=== PATIENT | female | born 1970 | race Hispanic/Latino ===

== ENCOUNTER 2023-02-17 21:22 | Emergency (ER) | payer SELFPAY ==
--- OUTSIDE RECORDS SUMMARY | 2023-02-17 21:28 | XMS REPORT | Continuity of Care Document ---
:1970 Author Organization [facility] t Address [address] [facility] [address] [facility] [address] [place] [address] Care Team Providers Name Role Phone Sacha Paige MD Primary Care Physician SACHA PAIGE Attending Clinician Unavailable 2, [facility] Attending Clinician Unavailable Sacha Paige MD Attending Clinician Doctor Unassigned, [place] Attending Clinician Unavailable JONATHAN TAVARES Attending Clinician Unavailable JONATHAN TAVARES Attending Clinician Unavailable GIACOMO LA Attending Clinician Unavailable Giacomo La MD Attending Clinician MIGUEL GARCIA Attending Clinician Unavailable Atul Hernandez MD Attending Clinician Miguel Garcia MD Attending Clinician CATHI KAISER Attending Clinician Unavailable Pob, [facility] Attending Clinician Unavailable Ilene Vences LMSW Attending Clinician MIGUEL GARCIA Admitting Clinician Unavailable Miguel Garcia MD Admitting Clinician Payers Payer Name Policy Type Policy Number Effective Date Expiration Date S ource MEDICAID ALI[place] PENDING 2022 2022 PENDING 00:00:00 00:00:00 [facility] [id number] 2019 [place] 00:00:00 Problems Condition Condition Condition Status Onset Resolution Last Treating Co mments Source Name Details Category Date Date Treatment Clinician Date Pes planus Pes planus Disease Active U nivers of both of both 5-18 ity of feet feet 00:00: Medical Branch Fungal Fungal Disease Active Univers infection infection 5-18 ity of of nail of nail 00:00: Medical Branch Acute Acute Disease Active Univers appendicit appendicit 9-09 it y of is is 00:00: Medical Branch Slow Slow Disease Active Univers transit transit 2-10 ity of constipati constipati 00:[place]: [place] Abdominal Abdominal Disease Active Uni vers pain, pain, 2-10 ity of generalize generalize 00:00: [place] d d 00 Medical [facility] Anxiety Anxiety Disease Active Univers and and 3-09 ity of depression depression 00:00: [place] 00 [place] 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 1-04 ity of simplex simplex 00:00: [place] virus 1) virus 1) 00 Medica l infection infection Bran ch 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 1-04 ity of simplex simplex 00:00: [place] infection infection 00 Medi damian of lips of lips Branch Need for Need for Disease Active 2019-09 Unive rs influenza influenza 1-04 ity of vaccinatio vaccinatio 00:00: [place] n 00 Medical [facility] Diabetic Diabetic Disease Active 2019-09 Unive rs eye exam eye exam 1-04 ity of 00:00: [place] [facility] Dyslipidem Dyslipidem Disease Active U nivers ia ia 5-29 ity of 00:00: Medical Branch Essential Essential Disease Active 2018-09 Uni vers hypertensi hypertensi 2-13 it y of on on 00:00: [place] [facility] Type 2 Type 2 Disease Active Univers diabetes diabetes 9-09 ity of mellitus mellitus 00:00: [place] without without 00 Medical complicati complicati Br anch on, on, without without long-term long-term current current use of use of insulin insulin Allergies, Adverse Reactions, Alerts Allergy Allergy Status Severity Reaction(s) Onset Inactive Treating Comm ents Source Name Type Date Date Clinician Clindamy Propensi Active Rash 2019-0 Univer s jessie ty to 6-18 ity of adverse 00:00: [place] reaction 00 Medical s Branch CLINDAMY DRUG Active Hives 2019-0 Univers JESSIE INGREDI 6-18 ity of 00:00: [place] 00 Medical Branch Clindamy Propensi Active Rash 2019-0 Univer s jessie ty to 5-20 ity of adverse 00:00: [place] reaction 00 Medical s Branch CLINDAMY DRUG Active Rash 2019-0 Univers JESSIE INGREDI 5-20 ity of 00:00: [place] 00 Medical Branch Social History Social Habit Start Date Stop Date Quantity Comments Source Alcohol intake 2023-02-08 2023-02-08 Current University of 00:00:00 00:00:00 non-drinker of [facility] alcohol (finding) Branch Exposure to 2023-01-28 2023-02-07 Not sure University SARS-CoV-2 00:00:00 13:41:00 [place] [facility] (event) Branch Tobacco use and 2022-06-01 2022-06-01 Smokeless tobacco Un iversity of exposure 00:00:00 00:00:00 non-user [place] [facility] History SDKY 2020-02-19 2020-02-19 5 University o f Financial 00:00:00 00:00:00 [place] [facility] History [facility] Food 2020-02-19 2020-02-19 1 Univers ity of Worry 00:00:00 00:00:00 [place] [facility] History [facility] Food 2020-02-19 2020-02-19 1 Univers ity of Scarcity 00:00:00 00:00:00 [place] [facility] History SDKY 2020-02-19 2020-02-19 2 University o f Transport Med 00:00:00 00:00:00 [place] Medic al Branch History SDKY 2020-02-19 2020-02-19 2 University o f Transport Non-Med 00:00:00 00:00:00 [place] M edical [facility] Education 2020-02-19 2020-02-19 12 University of 00:00:00 00:00:00 [facility] Sex [birth year] At [birth year] Universit y of 00:00:00 00:00:00 [facility] Smoking Status Start Date Stop Date Source Never smoked tobacco [facility] Medications Ordered Filled Start Stop Current Ordering Indication Dosage Frequency Signature Comments Components Source Medication Medication Date Date Medication? Clinician (SIG) Name Name lisinopriL- 2021-09 Yes [id number] 1{tbl} Take 1 Univers hydrochloro 1-22 tablet by ity of thiazide 00:00: mouth [place] 20-25 mg 00 daily. Medical per tablet Branch pioglitazon 2021-09 Yes [id number] 30mg Take 1 Univers e 30 mg 1-22 tablet by ity of tablet 00:00: mouth [place] 00 daily. Medical Branch rosuvastati 2021-09 Yes [id number] 20mg Take 1 Univers n 20 mg 1-22 tablet by ity of tablet 00:00: mouth at [place] 00 bedtime. Medical Branch metFORMIN 2021-09 Yes [id number] 1000mg Take 1 Univers 1,000 mg 1-22 tablet by ity of tablet 00:00: mouth 2 [place] (two) Medical times Branch daily with meals. valACYclovi 2021-09 Yes [id number] 1g Take 1 U nivers r 1 gram 1-22 tablet by ity of tablet 00:00: mouth 2 [place] (two) Medical times Branch daily. Take during acute flare up only lisinopriL- 2021-09 Yes [id number] 1{tbl} Take 1 Univers hydrochloro 1-22 tablet by ity of thiazide 00:00: mouth [place] 20-25 mg 00 daily. Medical per tablet Branch pioglitazon 2021-09 Yes [id number] 30mg Take 1 Univers e 30 mg 1-22 tablet by ity of tablet 00:00: mouth [place] 00 daily. Medical Branch rosuvastati 2021-09 Yes [id number] 20mg Take 1 Univers n 20 mg 1-22 tablet by ity of tablet 00:00: mouth at [place] 00 bedtime. Medical Branch metFORMIN 2021-09 Yes [id number] 1000mg Take 1 Univers 1,000 mg 1-22 tablet by ity of tablet 00:00: mouth 2 (two) Medical times Branch daily with meals. valACYclovi 2021-09 Yes [id number] 1g Take 1 U nivers r 1 gram 1-22 tablet by ity of tablet 00:00: mouth 2 00 (two) Medical times Branch daily. Take during acute flare up only lisinopriL- 2021-09 Yes [id number] 1{tbl} Take 1 Univers hydrochloro 1-22 tablet by ity of thiazide 00:00: mouth [place] 20-25 mg 00 daily. Medical per tablet Branch pioglitazon 2021-09 Yes [id number] 30mg Take 1 Univers e 30 mg 1-22 tablet by ity of tablet 00:00: mouth [place] 00 daily. Medical Branch rosuvastati 2021-09 Yes [id number] 20mg Take 1 Univers n 20 mg 1-22 tablet by ity of tablet 00:00: mouth at [place] 00 bedtime. Medical Branch metFORMIN 2021-09 Yes [id number] 1000mg Take 1 Univers 1,000 mg 1-22 tablet by ity of tablet 00:00: mouth (two) Medical times Branch daily with meals. valACYclovi 2021-09 Yes [id number] 1g Take 1 U nivers r 1 gram 1-22 tablet by ity of tablet 00:00: mouth (two) Medical times Branch daily. Take during acute flare up only lisinopriL- 2021-09 Yes [id number] 1{tbl} Take 1 Univers hydrochloro 1-22 tablet by ity of thiazide 00:00: mouth [place] 20-25 mg 00 daily. Medical per tablet Branch pioglitazon 2021-09 Yes [id number] 30mg Take 1 Univers e 30 mg 1-22 tablet by ity of tablet 00:00: mouth [place] 00 daily. Medical Branch rosuvastati 2021-09 Yes [id number] 20mg Take 1 Univers n 20 mg 1-22 tablet by ity of tablet 00:00: mouth at [place] 00 bedtime. Medical Branch metFORMIN 2021-09 Yes [id number] 1000mg Take 1 Univers 1,000 mg 1-22 tablet by ity of tablet 00:00: mouth (two) Medical times Branch daily with meals. valACYclovi 2021-09 Yes [id number] 1g Take 1 U nivers r 1 gram 1-22 tablet by ity of tablet 00:00: mouth 2 (two) Medical times Branch daily. Take during acute flare up only lisinopriL- 2021-09 Yes [id number] 1{tbl} Take 1 Univers hydrochloro 1-22 tablet by ity of thiazide 00:00: mouth [place] 20-25 mg 00 daily. Medical per tablet Branch pioglitazon 2021-09 Yes [id number] 30mg Take 1 Univers e 30 mg 1-22 tablet by ity of tablet 00:00: mouth [place] 00 daily. Medical Branch rosuvastati 2021-09 Yes [id number] 20mg Take 1 Univers n 20 mg 1-22 tablet by ity of tablet 00:00: mouth at [place] 00 bedtime. Medical Branch metFORMIN 2021-09 Yes [id number] 1000mg Take 1 Univers 1,000 mg 1-22 tablet by ity of tablet 00:00: mouth 2 00 (two) Medical times Branch daily with meals. valACYclovi 2021-09 Yes [id number] 1g Take 1 U nivers r 1 gram 1-22 tablet by ity of tablet 00:00: mouth 2 [place] 00 (two) Medical times Branch daily. Take during acute flare up only lisinopriL- 2021-09 Yes [id number] 1{tbl} Take 1 Univers hydrochloro 1-22 tablet by ity of thiazide 00:00: mouth [place] 20-25 mg 00 daily. Medical per tablet Branch pioglitazon 2021-09 Yes [id number] 30mg Take 1 Univers e 30 mg 1-22 tablet by ity of tablet 00:00: mouth [place] 00 daily. Medical Branch rosuvastati 2021-09 Yes [id number] 20mg Take 1 Univers n 20 mg 1-22 tablet by ity of tablet 00:00: mouth at [place] 00 bedtime. Medical Branch metFORMIN 2021-09 Yes [id number] 1000mg Take 1 Univers 1,000 mg 1-22 tablet by ity of tablet 00:00: mouth 2 [place] 00 (two) Medical times Branch daily with meals. valACYclovi 2021-09 Yes [id number] 1g Take 1 U nivers r 1 gram 1-22 tablet by ity of tablet 00:00: mouth 2 [place] 00 (two) Medical times Branch daily. Take during acute flare up only lisinopriL- 2021-09 Yes [id number] 1{tbl} Take 1 Univers hydrochloro 1-22 tablet by ity of thiazide 00:00: mouth [place] 20-25 mg 00 daily. Medical per tablet Branch pioglitazon 2021-09 Yes [id number] 30mg Take 1 Univers e 30 mg 1-22 tablet by ity of tablet 00:00: mouth [place] 00 daily. Medical Branch rosuvastati 2021-09 Yes [id number] 20mg Take 1 Univers n 20 mg 1-22 tablet by ity of tablet 00:00: mouth at [place] 00 bedtime. Medical Branch metFORMIN 2021-09 Yes [id number] 1000mg Take 1 Univers 1,000 mg 1-22 tablet by ity of tablet 00:00: mouth 2 [place] (two) Medical times Branch daily with meals. valACYclovi 2021-09 Yes [id number] 1g Take 1 U nivers r 1 gram 1-22 tablet by ity of tablet 00:00: mouth 2 (two) Medical times Branch daily. Take during acute flare up only lisinopriL- 2021-09 Yes [id number] 1{tbl} Take 1 Univers hydrochloro 1-22 tablet by ity of thiazide 00:00: mouth [place] 20-25 mg 00 daily. Medical per tablet Branch pioglitazon 2021-09 Yes [id number] 30mg Take 1 Univers e 30 mg 1-22 tablet by ity of tablet 00:00: mouth [place] 00 daily. Medical Branch rosuvastati 2021-09 Yes [id number] 20mg Take 1 Univers n 20 mg 1-22 tablet by ity of tablet 00:00: mouth at [place] 00 bedtime. Medical Branch metFORMIN 2021-09 Yes [id number] 1000mg Take 1 Univers 1,000 mg 1-22 tablet by ity of tablet 00:00: mouth (two) Medical times Branch daily with meals. valACYclovi 2021-09 Yes [id number] 1g Take 1 U nivers r 1 gram 1-22 tablet by ity of tablet 00:00: mouth 2 [place] (two) Medical times Branch daily. Take during acute flare up only morpHINE (2 Yes 2mg 2 mg, Unive rs mg/mL) 9-10 Intravenou ity of injection 2 21:52: s, PRN, 1 [place] mg 30 dose, Medical Starting Branch on 06/02/22 at 1652, Until Discontinu ed, Routine, Pain (scale 7-10), DSU Recovery ondansetron Yes 4mg 4 mg, Slow Univers (ZOFRAN 06-02 IV Push, ity of (PF)) 21:52: PRN, 1 [place] injection 4 30 dose, Medical mg Starting Branch on 06/02/22 at 1652, Until Discontinu ed, Routine, Nausea and Vomiting (N/V), DSU Recovery morpHINE (2 2021- No 2mg 2 mg, Univ ers mg/mL) 06-02 Intravenou ity of injection 2 21:52: 00:36 s, PRN, 1 [place] mg 30 :15 dose, Medical Starting Branch on 06/02/22 at 1652, Until 06/02/22 at 1936, Routine, Pain (scale 7-10), DSU Recovery ondansetron 2021- No 4mg 4 mg, Slow Univers (ZOFRAN 06-02 IV Push, ity of (PF)) 21:52: 00:36 PRN, 1 [place] injection 4 30 :15 dose, Medical mg Starting Branch on 06/02/22 at 1652, Until 06/02/22 at 1936, Routine, Nausea and Vomiting (N/V), DSU Recovery enoxaparin Yes 30mg 30 mg, Unive rs (LOVENOX) 06-02 Subcutaneo ity of injection 14:00: [place], DAILY, [place] 30 mg 00 First dose Medical on Sat Branch 06/02/22 at 0900, Until Discontinu ed, Routine enoxaparin 2021- No 30mg 30 mg, Univ ers (LOVENOX) 06-02 Subcutaneo ity of injection 14:00: 00:36 us, DAILY, [place] 30 mg 00 :15 First dose Medical on Sat Branch 06/02/22 at 0900, Until Discontinu ed, Routine piperacilli 2021- No 3.375g 3.375 g, Univers n-tazobacta 06-02 IV ity of m (ZOSYN) 06:30: 06:29 Piggyback, [place] 3.375 g in 00 :00 Q8H ABX, 3 Med ical NaCl 0.9% doses, Branch (NS) 50 mL First dose MINI-BAG on 06/02/22 at 0130, Last dose on 06/02/22 at 1730, Administer over 4 Hours, 50 mL
Reas on for Anti-Infec tive: Documented Infection< br>Documen jessica Infection Site: Abdominal< br>Duratio n of Therapy: 7 days piperacilli 0 202- No 3.375g 3.375 g, Univers n-tazobacta 06-02 IV ity of m (ZOSYN) 06:30: 00:36 Piggyback, [place] 3.375 g in 00 :15 Q8H ABX, 3 Med ical NaCl 0.9% doses, Branch (NS) 50 mL First dose MINI-BAG on 06/02/22 at 0130, Last dose on [facility] 06/02/22 at 1730, Administer over 4 Hours, 50 mL
Reas on for Anti-Infec tive: Documented Infection< br>Documen jessica Infection Site: Abdominal< br>Duratio n of Therapy: 7 days HYDROcodone Yes [id number] 1{tbl} Take 1 Un ginger -acetaminop 9-10 tablet by ity of hen 5-325 00:00: mouth [place] mg tablet 00 every 6 Medical (six) Branch hours as needed for Pain (scale 4-6) or Pain (scale 7-10). Indication s: acute pain HYDROcodone Yes [id number] 1{tbl} Take 1 Un ginger -acetaminop 9-10 tablet by ity of hen 5-325 00:00: mouth [place] mg tablet 00 every 6 Medical (six) Branch hours as needed for Pain (scale 4-6) or Pain (scale 7-10). Indication s: acute pain HYDROcodone Yes [id number] 1{tbl} Take 1 Un ginger -acetaminop 9-10 tablet by ity of hen 5-325 00:00: mouth [place] mg tablet 00 every 6 Medical (six) Branch hours as needed for Pain (scale 4-6) or Pain (scale 7-10). Indication s: acute pain HYDROcodone Yes [id number] 1{tbl} Take 1 Un ginger -acetaminop 9-10 tablet by ity of hen 5-325 00:00: mouth [place] mg tablet 00 every 6 Medical (six) Branch hours as needed for Pain (scale 4-6) or Pain (scale 7-10). Indication s: acute pain HYDROcodone 2021-0 Yes [id number] 1{tbl} Take 1 Un ginger -acetaminop 9-10 tablet by ity of hen 5-325 00:00: mouth [place] mg tablet 00 every 6 Medical (six) Branch hours as needed for Pain (scale 4-6) or Pain (scale 7-10). Indication s: acute pain HYDROcodone 2021-0 Yes [id number] 1{tbl} Take 1 Un ginger -acetaminop 9-10 tablet by ity of hen 5-325 00:00: mouth [place] mg tablet 00 every 6 Medical (six) Branch hours as needed for Pain (scale 4-6) or Pain (scale 7-10). Indication s: acute pain HYDROcodone 2021-0 Yes [id number] 1{tbl} Take 1 Un ginger -acetaminop 9-10 tablet by ity of hen 5-325 00:00: mouth [place] mg tablet 00 every 6 Medical (six) Branch hours as needed for Pain (scale 4-6) or Pain (scale 7-10). Indication s: acute pain HYDROcodone 2021-0 Yes [id number] 1{tbl} Take 1 Un ginger -acetaminop 9-10 tablet by ity of hen 5-325 00:00: mouth [place] mg tablet 00 every 6 Medical (six) Branch hours as needed for Pain (scale 4-6) or Pain (scale 7-10). Indication s: acute pain HYDROcodone 2021-0 Yes [id number] 1{tbl} Take 1 Un ginger -acetaminop 9-10 tablet by ity of hen 5-325 00:00: mouth [place] mg tablet 00 every 6 Medical (six) Branch hours as needed for Pain (scale 4-6) or Pain (scale 7-10). Indication s: acute pain HYDROcodone 2-0 Yes [id number] 1{tbl} Take 1 Un ginger -acetaminop 9-10 tablet by ity of hen 5-325 00:00: mouth [place] mg tablet 00 every 6 Medical (six) Branch hours as needed for Pain (scale 4-6) or Pain (scale 7-10). Indication s: acute pain HYDROcodone 2022-0 2023- No [id number] 1{tbl} Take 1 U nivers -acetaminop 9-10 05-18 tablet by it y of hen 5-325 00:00: 00:00 mouth [place] mg tablet 00 :00 every 6 Medical (six) Branch hours as needed for Pain (scale 4-6) or Pain (scale 7-10). Indication s: acute pain HYDROcodone 2022- No [id number] 1{tbl} Take 1 U nivers -acetaminop 9-10 05-18 tablet by it y of hen 5-325 00:00: 00:00 mouth [place] mg tablet 00 :00 every 6 Medical (six) Branch hours as needed for Pain (scale 4-6) or Pain (scale 7-10). Indication s: acute pain ketorolac 2021-2021- No [id number] 10mg Take 1 U nivers 10 mg 9-10 09-18 tablet by ity of tablet 00:00: 04:59 mouth [place] 00 :00 every 6 Medical (six) Branch hours as needed for Alternate with Riley for pain scale 1-3 for up to 7 days. ketorolac 2021-0 2- No [id number] 10mg Take 1 U nivers 10 mg 9-10 09-18 tablet by ity of tablet 00:00: 04:59 mouth [place] 00 :00 every 6 Medical (six) Branch hours as needed for Alternate with Riley for pain scale 1-3 for up to 7 days. ketorolac 2021-0 2- No [id number] 10mg Take 1 U nivers 10 mg 9-10 09-18 tablet by ity of tablet 00:00: 04:59 mouth [place] 00 :00 every 6 Medical (six) Branch hours as needed for Alternate with [place] for pain scale 1-3 for up to 7 days. NaCl 0.9% 2021-0 Yes 1000mL at 150 Univ ers (NS) IV 9-09 mL/hr, IV ity of infusion 23:00: Infusion, [place] 1,000 mL 00 CONTINUOUS Medic al , Starting Branch on Sat06/01/22 at 1800, Until Discontinu ed, Routine ibuprofen 2021-0 Yes 800mg 800 mg, Univ ers (IBU) 9-09 Oral, Q6H, ity of tablet 800 23:00: First dose [place] mg 00 on Fri Medical 06/01/22 at Branch 1800, Until Discontinu ed, Routine NaCl 0.9% No 1000mL at 150 Uni vers (NS) IV 06-01 mL/hr, IV ity of infusion 23:00: 00:36 Infusion, [place] 1,000 mL 00 :15 CONTINUOUS Medic al , Starting Branch on Sat06/01/22 at 1800, Until 06/02/22 at 1936, Routine ibuprofen 2021- No 800mg 800 mg, Uni vers (IBU) 06-01 Oral, Q6H, ity of tablet 800 23:00: 00:36 First dose [place] mg 00 :15 on Sat Medical 06/01/22 at Branch 1800, Until Discontinu ed, Routine ondansetron Yes 4mg 4 mg, Slow Univers (ZOFRAN 06-01 IV Push, ity of (PF)) 22:49: Q6HPRN, [place] injection 4 11 Nausea and Me dical mg Vomiting Branch (N/V), Starting on Sat06/01/22 at 1749
Do ses of ondansetro n 16 mg and above need to be administer ed via IV piggyback. For Dose >=24mg ECG monitoring is advisable.
ondansetron No 4mg 4 mg, Slow Univers (ZOFRAN 06-01 IV Push, ity of (PF)) 22:49: 00:36 Q6HPRN, [place] injection 4 11 :15 Nausea and Me dical mg Vomiting Branch (N/V), Starting on Sat06/01/22 at 1749
Do ses of ondansetro n 16 mg and above need to be administer ed via IV piggyback. For Dose >=24mg ECG monitoring is advisable.
HYDROcodone Yes 1{tbl} 1 tablet, Univers -acetaminop 06-01 Oral, ity of hen (NORCO) 21:57: Q6HPRN, [place] 10-325 mg 10 Starting Medica l tablet 1 on Sat Branch tablet 06/01/22 at 1657, Until Discontinu ed, Routine, Pain (scale 7-10) HYDROcodone 2021-2021- No 1{tbl} 1 tablet, Univers -acetaminop 06-01 Oral, ity of hen (NORCO) 21:57: 00:36 Q6HPRN, [place] 10-325 mg 10 :15 Starting Medica l tablet 1 on Fri Branch tablet 06/01/22 at 1657, Until 06/02/22 at 1936, Routine, Pain (scale 7-10) morpHINE (2 2021- No 2mg 2 mg, Slow Univers mg/mL) 06-01 IV Push, ity of injection 2 21:56: 14:55 Q6HPRN, [place] mg 53 :53 Starting Medical on Fri Branch 06/01/22 at 1656, Until 06/02/22 at 0955, Routine, Breakthrou gh pain morpHINE (2 2021- No 2mg 2 mg, Slow Univers mg/mL) 06-01 IV Push, ity of injection 2 21:56: 14:55 Q6HPRN, [place] mg 53 :53 Starting Medical on Fri Branch 06/01/22 at 1656, Until 06/02/22 at 0955, Routine, Breakthrou gh pain Sliding Yes Subcutaneo Univ ers Scale 06-01 us, AC+HS, ity of Insulin-Reg 21:30: First dose [place] ular + Fsbg 00 on Sat Medica l Testing 06/01/22 at Branch 1630, Until Discontinu ed, Routine Sliding 2021- No Subcutaneo Uni vers Scale 06-01 us, AC+HS, ity of Insulin-Reg 21:30: 00:36 First dose [place] ular + Fsbg 00 :15 on Fri Medica l Testing 06/01/22 at Branch 1630, Until Discontinu ed, Routine bupivacaine 2021- No PRN, Unive rs -epinephrin 06-01 Starting ity of e-pf 21:29: 21:55 on Fri [place] (SENSORCAIN 00 :21 06/01/22 at Med ical E 1629, Branch W/EPINEPHRI Intra-op NE) 0.25 %-1:200,000 30 mL, lidocaine 1% (PF) (XYLOCAINE) 30 mL sodium 2021- No PRN, Univers chloride 06-01 Starting ity of 0.9 % 20:47: 21:55 on Fri [place] irrigation 00 :21 06/01/22 at Medi damian solution 1547, Branch Until 06/01/22 at 1655, Intra-op glucagon Yes 1mg 1 mg, Univers (GLUCAGEN 06-01 Intramuscu ity of DIAGNOSTIC 19:40: lar, PRN, [place] KIT) 21 Starting Medical injection 1 on Fri Branch mg 06/01/22 at 1440, Until Discontinu ed, SVEN, Blood Glucose < or = 70 mg/dL and patient is unable to swallow or has mental changes. dextrose 50 Yes 25mL 25 mL, Univ ers % in water 06-01 Slow IV ity of (D50W) 19:40: Push, PRN, [place] injection 21 Starting Medica l 25 mL on Fri Branch 06/01/22 at 1440, Until Discontinu ed, SVEN, Blood Glucose < or = 70 mg/dL and patient is unable to swallow or has mental status changes. glucagon 0 2021- No 1mg 1 mg, Univers (GLUCAGEN 06-01 Intramuscu ity of DIAGNOSTIC 19:40: 00:36 lar, PRN, [place] KIT) 21 :15 Starting Medical injection 1 on Sat Branch 06/01/22 at 1440, Until 06/02/22 at 1936, SVEN, Blood Glucose < or = 70 mg/dL and patient is unable to swallow or has mental changes. dextrose 50 0 2021- No 25mL 25 mL, Uni vers % in water 06-01 Slow IV ity o f (D50W) 19:40: 00:36 [place], PRN, [place] injection 21 :15 Starting Medica l 25 mL on Fri Branch 06/01/22 at 1440, Until 06/02/22 at 1936, SVEN, Blood Glucose < or = 70 mg/dL and patient is unable to swallow or has mental status changes. NaCl 0.9% 2021- No 1000mL at 150 Uni vers (NS) IV 06-01 mL/hr, IV ity of infusion 15:45: 22:00 Infusion, [place] 1,000 mL 00 :21 CONTINUOUS Medic al , Starting Branch on 06/01/22 at 1045, Until 06/01/22 at 1700, Routine NaCl 0.9% 2021- No 1000mL at 150 Uni vers (NS) IV 06-01 mL/hr, IV ity of infusion 15:45: 22:00 Infusion, [place] 1,000 mL 00 :21 CONTINUOUS Medic al , Starting Branch on 06/01/22 at 1045, Until 06/01/22 at 1700, Routine HYDROcodone 2021- No 1{tbl} 1 tablet, Univers -acetaminop 06-01 Oral, ity of hen (NORCO 15:15: 15:14 Q6HPRN, [place] 5) 5-325 mg 56 :56 Starting Medi damian tablet 1 on Fri Branch tablet 06/01/22 at 1015, Until 06/03/22 at 1014, Routine, Pain (scale 4-6) HYDROcodone 2021- No 1{tbl} 1 tablet, Univers -acetaminop 06-01 Oral, ity of hen (NORCO 15:15: 00:36 Q6HPRN, [place] 5) 5-325 mg 56 :15 Starting Medi damian tablet 1 on Fri Branch tablet 06/01/22 at 1015, Until 06/02/22 at 1936, Routine, Pain (scale 4-6) acetaminoph Yes 650mg 650 mg, Un ginger en 06-01 Oral, ity of (TYLENOL) 15:15: Q6HPRN, [place] tablet 650 54 Starting Medic al mg on Fri Branch 06/01/22 at 1015, Until Discontinu ed, Routine, Pain (scale 1-3) acetaminoph 2021- No 650mg 650 mg, U nivers en 06-01 Oral, ity of (TYLENOL) 15:15: 00:36 Q6HPRN, [place] tablet 650 54 :15 Starting Medic al mg on Fri Branch 06/01/22 at 1015, Until 06/02/22 at 1936, Routine, Pain (scale 1-3) ondansetron 2021-0 202- No 4mg 4 mg, Slow Univers (ZOFRAN 06-01 IV Push, ity of (PF)) 14:58: 15:00 ONCE, 1 [place] injection 4 00 :00 dose, On Medi damian mg Sat06/01/22 Branch at 1000, SVEN ondansetron 2021-0 202- No 4mg 4 mg, Slow Univers (ZOFRAN 06-01 IV Push, ity of (PF)) 14:58: 15:00 ONCE, 1 [place] injection 4 00 :00 dose, On Medi damian mg Sat06/01/22 Branch at 1000, SVEN FENTanyl PF 2021-2021- No 50ug 50 mcg, Un ginger (SUBLIMAZE 06-01 Slow IV ity o f (PF)) 14:45: 14:40 Push, [place] injection 00 :00 ONCE, 1 Medical 50 mcg dose, On Branch Sat06/01/22 at 0945, STAT piperacilli 2021-0 2021- No 3.375g 3.375 g, Univers n-tazobacta 06-01 IV ity of m (ZOSYN) 14:45: 15:24 Piggyback, [place] 3.375 g in 00 :58 ONCE, 1 Medica l NaCl 0.9% dose, On Branch (NS) 50 mL Sat06/01/22 MINI-BAG at 0945, Administer over 30 Minutes, 50 mL
R la for Anti-Infec tive: Documented Infection< br>Documen jessica Infection Site: Skin / Soft Tissue
Duration of Therapy: 7 days FENTanyl PF 2021-0 2021- No 50ug 50 mcg, Un ginger (SUBLIMAZE 06-01 Slow IV ity o f (PF)) 14:45: 14:40 Push, [place] injection 00 :00 ONCE, 1 Medical 50 mcg dose, On Branch Sat06/01/22 at 0945, STAT piperacilli 2021-0 2021- No 3.375g 3.375 g, Univers n-tazobacta 06-01 IV ity of m (ZOSYN) 14:45: 15:24 [place] 3.375 g in 00 :58 ONCE, 1 Medica l NaCl 0.9% dose, On Branch (NS) 50 mL Sat06/01/22 MINI-BAG at 0945, Administer over 30 Minutes, 50 mL
R la for Anti-Infec tive: Documented Infection< br>Documen jessica Infection Site: Skin / Soft Tissue
Duration of Therapy: 7 days ketorolac 2021- No 30mg 30 mg, Unive rs (TORADOL) 06-01 Slow IV ity of injection 14:00: 12:51 Push, [place] 30 mg 00 :00 ONCE, 1 Medical dose, On Branch Sat06/01/22 at 0900, Routine ketorolac 2021- No 30mg 30 mg, Unive rs (TORADOL) 06-01 Slow IV ity of injection 14:00: 12:51 Push, [place] 30 mg 00 :00 ONCE, 1 Medical dose, On Branch Sat06/01/22 at 0900, Routine docusate Yes [id number] 100mg Take 1 Un ginger (COLACE) 2-10 capsule by ity o f 100 mg 00:00: mouth 2 [place] capsule 00 (two) Medical times Branch daily as needed for Constipati on. psyllium Yes [id number] .52g Take 1 Uni vers (METAMUCIL) 2-10 capsule by it y of 0.52 gram 00:00: mouth [place] capsule 00 daily. Medical Branch NIFEdipine Yes [id number] 30mg Take 1 U nivers XL 2-10 tablet by ity of (PROCARDIA 00:00: mouth [place] XL) 30 mg 00 daily. Medical 24 hr Branch tablet lisinopriL- Yes [id number] 1{tbl} Take 1 [facility] hydrochloro 2-10 tablet by ity of thiazide 00:00: mouth [place] 20-25 mg 00 daily. Medical per tablet Branch pioglitazon Yes [id number] 30mg Take 1 Univers e 30 mg 2-10 tablet by ity of tablet 00:00: mouth [place] 00 daily. Medical Branch metFORMIN Yes [id number] 1000mg Take 1 [facility] 1,000 mg 2-10 tablet by ity of tablet 00:00: mouth 2 [place] 00 (two) Medical times Branch daily with meals. rosuvastati Yes [id number] 20mg Take 1 [facility] n 20 mg 2-10 tablet by ity of tablet 00:00: mouth at [place] 00 bedtime. Medical Branch docusate 0 Yes [id number] 100mg Take 1 Un ginger (COLACE) 2-10 capsule by ity o f 100 mg 00:00: mouth 2 [place] capsule 00 (two) Medical times Branch daily as needed for Constipati on. psyllium Yes [id number] .52g Take 1 Uni vers (METAMUCIL) 2-10 capsule by it y of 0.52 gram 00:00: mouth [place] capsule 00 daily. Medical Branch NIFEdipine Yes [id number] 30mg Take 1 U nivers XL 2-10 tablet by ity of (PROCARDIA 00:00: mouth [place] XL) 30 mg 00 daily. Medical 24 hr Branch tablet lisinopriL- 0 Yes [id number] 1{tbl} Take 1 [facility] hydrochloro 2-10 tablet by ity of thiazide 00:00: mouth [place] 20-25 mg 00 daily. Medical per tablet Branch pioglitazon Yes [id number] 30mg Take 1 [facility] e 30 mg 2-10 tablet by ity of tablet 00:00: mouth [place] 00 daily. Medical Branch metFORMIN Yes [id number] 1000mg Take 1 [facility] 1,000 mg 2-10 tablet by ity of tablet 00:00: mouth 2 [place] 00 (two) Medical times Branch daily with meals. rosuvastati Yes [id number] 20mg Take 1 [facility] n 20 mg 2-10 tablet by ity of tablet 00:00: mouth at [place] 00 bedtime. Medical Branch docusate Yes [id number] 100mg Take 1 Un ginger (COLACE) 2-10 capsule by ity o f 100 mg 00:00: mouth 2 [place] capsule 00 (two) Medical times Branch daily as needed for Constipati on. psyllium 0 Yes [id number] .52g Take 1 Uni vers (METAMUCIL) 2-10 capsule by it y of 0.52 gram 00:00: mouth [place] capsule 00 daily. Medical Branch NIFEdipine 0 Yes [id number] 30mg Take 1 U nivers XL 2-10 tablet by ity of (PROCARDIA 00:00: mouth [place] XL) 30 mg 00 daily. Medical 24 hr Branch tablet lisinopriL- Yes [id number] 1{tbl} Take 1 [facility] hydrochloro 2-10 tablet by ity of thiazide 00:00: mouth [place] 20-25 mg 00 daily. Medical per tablet Branch pioglitazon Yes [id number] 30mg Take 1 [facility] e 30 mg 2-10 tablet by ity of tablet 00:00: mouth [place] 00 daily. Medical Branch metFORMIN Yes [id number] 1000mg Take 1 [facility] 1,000 mg 2-10 tablet by ity of tablet 00:00: mouth 2 [place] 00 (two) Medical times Branch daily with meals. rosuvastati Yes [id number] 20mg Take 1 [facility] n 20 mg 2-10 tablet by ity of tablet 00:00: mouth at [place] 00 bedtime. Medical Branch docusate Yes [id number] 100mg Take 1 Un ginger (COLACE) 2-10 capsule by ity o f 100 mg 00:00: mouth 2 [place] capsule 00 (two) Medical times Branch daily as needed for Constipati on. psyllium Yes [id number] .52g Take 1 Uni vers (METAMUCIL) 2-10 capsule by it y of 0.52 gram 00:00: mouth [place] capsule 00 daily. Medical Branch NIFEdipine Yes [id number] 30mg Take 1 U nivers XL 2-10 tablet by ity of (PROCARDIA 00:00: mouth [place] XL) 30 mg 00 daily. Medical 24 hr Branch tablet lisinopriL- Yes [id number] 1{tbl} Take 1 [facility] hydrochloro 2-10 tablet by ity of thiazide 00:00: mouth [place] 20-25 mg 00 daily. Medical per tablet Branch pioglitazon Yes [id number] 30mg Take 1 [facility] e 30 mg 2-10 tablet by ity of tablet 00:00: mouth [place] 00 daily. Medical Branch metFORMIN 0 Yes [id number] 1000mg Take 1 [facility] 1,000 mg 2-10 tablet by ity of tablet 00:00: mouth 2 [place] 00 (two) Medical times Branch daily with meals. rosuvastati Yes [id number] 20mg Take 1 [facility] n 20 mg 2-10 tablet by ity of tablet 00:00: mouth at [place] 00 bedtime. Medical Branch psyllium Yes [id number] .52g Take 1 Uni vers (METAMUCIL) 2-10 capsule by it y of 0.52 gram 00:00: mouth [place] capsule 00 daily. Medical Branch NIFEdipine Yes [id number] 30mg Take 1 U nivers XL 2-10 tablet by ity of (PROCARDIA 00:00: mouth [place] XL) 30 mg 00 daily. Medical 24 hr Branch tablet lisinopriL- Yes [id number] 1{tbl} Take 1 [facility] hydrochloro 2-10 tablet by ity of thiazide 00:00: mouth [place] 20-25 mg 00 daily. Medical per tablet Branch pioglitazon Yes [id number] 30mg Take 1 [facility] e 30 mg 2-10 tablet by ity of tablet 00:00: mouth [place] 00 daily. Medical Branch metFORMIN Yes [id number] 1000mg Take 1 [facility] 1,000 mg 2-10 tablet by ity of tablet 00:00: mouth 2 [place] 00 (two) Medical times Branch daily with meals. rosuvastati Yes [id number] 20mg Take 1 [facility] n 20 mg 2-10 tablet by ity of tablet 00:00: mouth at [place] 00 bedtime. Medical Branch psyllium Yes [id number] .52g Take 1 Uni vers (METAMUCIL) 2-10 capsule by it y of 0.52 gram 00:00: mouth [place] capsule 00 daily. Medical Branch NIFEdipine Yes [id number] 30mg Take 1 U nivers XL 2-10 tablet by ity of (PROCARDIA 00:00: mouth [place] XL) 30 mg 00 daily. Medical 24 hr Branch tablet lisinopriL- Yes [id number] 1{tbl} Take 1 [facility] hydrochloro 2-10 tablet by ity of thiazide 00:00: mouth [place] 20-25 mg 00 daily. Medical per tablet Branch pioglitazon Yes [id number] 30mg Take 1 [facility] e 30 mg 2-10 tablet by ity of tablet 00:00: mouth [place] 00 daily. Medical Branch metFORMIN Yes [id number] 1000mg Take 1 [facility] 1,000 mg 2-10 tablet by ity of tablet 00:00: mouth 2 [place] 00 (two) Medical times Branch daily with meals. rosuvastati Yes [id number] 20mg Take 1 [facility] n 20 mg 2-10 tablet by ity of tablet 00:00: mouth at [place] 00 bedtime. Medical Branch psyllium Yes [id number] .52g Take 1 Uni vers (METAMUCIL) 2-10 capsule by it y of 0.52 gram 00:00: mouth [place] capsule 00 daily. Medical Branch NIFEdipine Yes [id number] 30mg Take 1 U nivers XL 2-10 tablet by ity of (PROCARDIA 00:00: mouth [place] XL) 30 mg 00 daily. Medical 24 hr Branch tablet lisinopriL- Yes [id number] 1{tbl} Take 1 [facility] hydrochloro 2-10 tablet by ity of thiazide 00:00: mouth [place] 20-25 mg 00 daily. Medical per tablet Branch pioglitazon Yes [id number] 30mg Take 1 [facility] e 30 mg 2-10 tablet by ity of tablet 00:00: mouth [place] 00 daily. Medical Branch metFORMIN Yes [id number] 1000mg Take 1 [facility] 1,000 mg 2-10 tablet by ity of tablet 00:00: mouth 2 [place] 00 (two) Medical times Branch daily with meals. rosuvastati Yes [id number] 20mg Take 1 [facility] n 20 mg 2-10 tablet by ity of tablet 00:00: mouth at [place] 00 bedtime. Medical Branch psyllium Yes [id number] .52g Take 1 Uni vers (METAMUCIL) 2-10 capsule by it y of 0.52 gram 00:00: mouth [place] capsule 00 daily. Medical Branch NIFEdipine Yes [id number] 30mg Take 1 U nivers XL 2-10 tablet by ity of (PROCARDIA 00:00: mouth [place] XL) 30 mg 00 daily. Medical 24 hr Branch tablet lisinopriL- Yes [id number] 1{tbl} Take 1 [facility] hydrochloro 2-10 tablet by ity of thiazide 00:00: mouth [place] 20-25 mg 00 daily. Medical per tablet Branch pioglitazon Yes [id number] 30mg Take 1 [facility] e 30 mg 2-10 tablet by ity of tablet 00:00: mouth [place] 00 daily. Medical Branch metFORMIN Yes [id number] 1000mg Take 1 [facility] 1,000 mg 2-10 tablet by ity of tablet 00:00: mouth 2 [place] 00 (two) Medical times Branch daily with meals. rosuvastati Yes [id number] 20mg Take 1 [facility] n 20 mg 2-10 tablet by ity of tablet 00:00: mouth at [place] 00 bedtime. Medical Branch psyllium Yes [id number] .52g Take 1 Uni vers (METAMUCIL) 2-10 capsule by it y of 0.52 gram 00:00: mouth [place] capsule 00 daily. Medical Branch NIFEdipine Yes [id number] 30mg Take 1 U nivers XL 2-10 tablet by ity of (PROCARDIA 00:00: mouth [place] XL) 30 mg 00 daily. Medical 24 hr Branch tablet lisinopriL- Yes [id number] 1{tbl} Take 1 [facility] hydrochloro 2-10 tablet by ity of thiazide 00:00: mouth [place] 20-25 mg 00 daily. Medical per tablet Branch pioglitazon Yes [id number] 30mg Take 1 [facility] e 30 mg 2-10 tablet by ity of tablet 00:00: mouth [place] 00 daily. Medical Branch metFORMIN Yes [id number] 1000mg Take 1 [facility] 1,000 mg 2-10 tablet by ity of tablet 00:00: mouth 2 (two) Medical times Branch daily with meals. rosuvastati Yes [id number] 20mg Take 1 [facility] n 20 mg 2-10 tablet by ity of tablet 00:00: mouth at [place] 00 bedtime. Medical Branch psyllium 2021- No [id number] .52g Take 1 Un ginger (METAMUCIL) 2-10 11-22 capsule by i ty of 0.52 gram 00:00: 00:00 mouth [place] capsule 00 :00 daily. Medical Branch NIFEdipine 2021- No [id number] 30mg Take 1 [facility] XL 2-10 11-22 tablet by ity of (PROCARDIA 00:00: 00:00 mouth [place] XL) 30 mg 00 :00 daily. Medical 24 hr Branch tablet lisinopriL- 2021- No [id number] 1{tbl} Take 1 [facility] hydrochloro 2-10 11-22 tablet by it y of thiazide 00:00: 00:00 mouth [place] 20-25 mg 00 :00 daily. Medical per tablet Branch pioglitazon 2021- No [id number] 30mg Take 1 [facility] e 30 mg 2-10 -22 tablet by ity of tablet 00:00: 00:00 mouth [place] 00 :00 daily. Medical Branch metFORMIN No [id number] 1000mg Take 1 [facility] 1,000 mg 2-10 -22 tablet by ity o f tablet 00:00: 00:00 mouth 2 [place] 00 :00 (two) Medical times Branch daily with meals. rosuvastati 2021- No [id number] 20mg Take 1 [facility] n 20 mg 2-10 -22 tablet by ity of tablet 00:00: 00:00 mouth at [place] 00 :00 bedtime. Medical Branch psyllium 2021- No [id number] .52g Take 1 Un ginger (METAMUCIL) 2-10 -22 capsule by i ty of 0.52 gram 00:00: 00:00 mouth [place] capsule 00 :00 daily. Medical Branch NIFEdipine 2021- No [id number] 30mg Take 1 [facility] XL 2-10 11-22 tablet by ity of (PROCARDIA 00:00: 00:00 mouth [place] XL) 30 mg 00 :00 daily. Medical 24 hr Branch tablet lisinopriL- 2021- No [id number] 1{tbl} Take 1 [facility] hydrochloro 2-10 11-22 tablet by it y of thiazide 00:00: 00:00 mouth [place] 20-25 mg 00 :00 daily. Medical per tablet Branch pioglitazon 2021- No [id number] 30mg Take 1 [facility] e 30 mg 2-10 11-22 tablet by ity of tablet 00:00: 00:00 mouth [place] 00 :00 daily. Medical Branch metFORMIN 2021- No [id number] 1000mg Take 1 [facility] 1,000 mg 2-10 11-22 tablet by ity o f tablet 00:00: 00:00 mouth 2 [place] 00 :00 (two) Medical times Branch daily with meals. rosuvastati 2021- No [id number] 20mg Take 1 Univers n 20 mg 2-10 -22 tablet by ity of tablet 00:00: 00:00 mouth at [place] 00 :00 bedtime. Medical Branch docusate 2021- No [id number] 100mg Take 1 U nivers (COLACE) 2-10 09-10 capsule by ity of 100 mg 00:00: 00:00 mouth 2 [place] capsule 00 :00 (two) Medical times Branch daily as needed for Constipati on. docusate 2021- No [id number] 100mg Take 1 U nivers (COLACE) 2-10 09-10 capsule by ity of 100 mg 00:00: 00:00 mouth 2 [place] capsule 00 :00 (two) Medical times Branch daily as needed for Constipati on. FLUoxetine Yes [id number] 10mg Take 1 Univers 10 mg 3-09 tablet by ity of tablet 00:00: mouth [place] 00 daily. Medical Branch FLUoxetine Yes [id number] 10mg Take 1 Univers 10 mg 3-09 tablet by ity of tablet 00:00: mouth [place] 00 daily. [facility] FLUoxetine Yes [id number] 10mg Take 1 Univers 10 mg 3-09 tablet by ity of tablet 00:00: mouth [place] 00 daily. Medical Branch FLUoxetine Yes [id number] 10mg Take 1 Univers 10 mg 3-09 tablet by ity of tablet 00:00: mouth [place] 00 daily. [facility] FLUoxetine Yes [id number] 10mg Take 1 Univers 10 mg 3-09 tablet by ity of tablet 00:00: mouth [place] 00 daily. [facility] FLUoxetine Yes [id number] 10mg Take 1 Univers 10 mg 3-09 tablet by ity of tablet 00:00: mouth [place] 00 daily. [facility] FLUoxetine Yes [id number] 10mg Take 1 Univers 10 mg 3-09 tablet by ity of tablet 00:00: mouth [place] 00 daily. [facility] FLUoxetine Yes [id number] 10mg Take 1 Univers 10 mg 3-09 tablet by ity of tablet 00:00: mouth [place] 00 daily. Medical Branch FLUoxetine Yes [id number] 10mg Take 1 [facility] 10 mg 3- tablet by ity of tablet 00:00: mouth [place] 00 daily. Medical Branch FLUoxetine 2021- No [id number] 10mg Take 1 Univers 10 mg 308-14 tablet by ity of tablet 00:00: 00:00 mouth [place] 00 :00 daily. Medical Branch FLUoxetine 2021- No [id number] 10mg Take 1 [facility] 10 mg 11-29 tablet by ity of tablet 00:00: 00:00 mouth [place] 00 :00 daily. Medical Branch acyclovir 2019-09 Yes [id number] 400mg Take 1 [facility] 400 mg 1-04 tablet by ity of tablet 00:00: mouth 3 00 (three) Medical times Branch daily. Docosanol 2019- Yes [id number] Apply to Univers (ABREVA) 10 -04 area(s) 2 ity of % Crea 00:00: (two) [place] 00 times Medical daily. Branch acyclovir 2019-09 Yes [id number] 400mg Take 1 [facility] 400 mg 1-04 tablet by ity of tablet 00:00: mouth 3 00 (three) Medical times Branch daily. Docosanol 2020- Yes [id number] Apply to Univers (ABREVA) 10 1-04 area(s) 2 ity of % Crea 00:00: (two) [place] 00 times Medical daily. Branch acyclovir 2019-09 Yes [id number] 400mg Take 1 [facility] 400 mg 1-04 tablet by ity of tablet 00:00: mouth 3 [place] 00 (three) Medical times Branch daily. Docosanol 2020- Yes [id number] Apply to Univers (ABREVA) 10 1-04 area(s) 2 ity of % Crea 00:00: (two) [place] 00 times Medical daily. Branch acyclovir 2019-09 Yes [id number] 400mg Take 1 [facility] 400 mg 1-04 tablet by ity of tablet 00:00: mouth 3 [place] 00 (three) Medical times Branch daily. Docosanol 2020- Yes [id number] Apply to Univers (ABREVA) 10 1-04 area(s) 2 ity of % Crea 00:00: (two) [place] 00 times Medical daily. Branch acyclovir 2019-09- No [id number] 400mg Take 1 [facility] 400 mg 09-26 tablet by ity of tablet 00:00: 00:00 mouth 3 [place] 00 :00 (three) Medical times Branch daily. Docosanol 2019-09- No [id number] Apply to [facility] 10 09-26 area(s) 2 it y of % Crea 00:00: 00:00 (two) [place] 00 :00 times Medical daily. Branch acyclovir 2019-09- No [id number] 400mg Take 1 Univers 400 mg 09-26 tablet by ity of tablet 00:00: 00:00 mouth 3 [place] 00 :00 (three) Medical times [place] daily. Docosanol 2019-09- No [id number] Apply to [facility] 10 09-26 area(s) 2 it y of % Crea 00:00: 00:00 (two) [place] 00 :00 times Medical daily. Branch Miscellaneo 2018-09 Yes [id number] I10 - [facility] [place] [employer] [facility] 11-01 Dispense ity o f Supply Kit 00:00: blood [place] 00 pressure Medical cuff (any Branch brand), take BP at home BID Miscellaneo 2018-09 Yes [id number] I10 - [facility] [place] [employer] [facility] 11-01 Dispense ity o f Supply Kit 00:00: blood [place] 00 pressure Medical cuff (any Branch brand), take BP at home BID Miscellaneo 2018-09 Yes [id number] I10 - [facility] [place] [employer] [facility] 11-01 Dispense ity o f Supply Kit 00:00: blood [place] 00 pressure Medical cuff (any Branch brand), take BP at home BID Miscellaneo 2018-09 Yes [id number] I10 - [facility] [place] [employer] [facility] 11-01 Dispense ity o f Supply Kit 00:00: blood [place] 00 pressure Medical cuff (any Branch brand), take BP at home BID Miscellaneo 2018-09 Yes [id number] I10 - [facility] [place] [employer] [facility] 11-01 Dispense ity o f Supply Kit 00:00: blood [place] 00 pressure Medical cuff (any Branch brand), take BP at home BID Miscellaneo 2018-09 Yes [id number] I10 - [facility] 11[facility] Dispense ity o f Supply Kit 00:00: blood [place] 00 pressure Medical cuff (any Branch brand), take BP at home BID Miscellaneo 2018-09 Yes [id number] I10 - U [facility] 11-01 Dispense ity o f Supply Kit 00:00: blood [place] 00 pressure Medical cuff (any Branch brand), take BP at home BID Miscellaneo 2018-09 Yes [id number] I10 - [facility] 11-01 Dispense ity o f Supply Kit 00:00: blood [place] 00 pressure Medical cuff (any Branch brand), take BP at home BID Miscellaneo 2018-09 Yes [id number] I10 - [facility] 11-01 Dispense ity o f Supply Kit 00:00: blood [place] 00 pressure Medical cuff (any Branch brand), take BP at home BID Miscellaneo 2018-09 Yes [id number] I10 - [facility] 11-01 Dispense ity o f Supply Kit 00:00: blood [place] 00 pressure Medical cuff (any Branch brand), take BP at home BID Miscellaneo 2018-09 Yes [id number] I10 - U [facility] 11-01 Dispense ity o f Supply Kit 00:00: blood [place] 00 pressure Medical cuff (any Branch brand), take BP at home BID Miscellaneo 2018-09 Yes [id number] I10 - [facility] 11-01 Dispense ity o f Supply Kit 00:00: blood [place] 00 pressure Medical cuff (any Branch brand), take BP at home BID Miscellaneo 2018-09 Yes [id number] I10 - [facility] 11-01 Dispense ity o f Supply Kit 00:00: blood [place] 00 pressure Medical cuff (any Branch brand), take BP at home BID Miscellaneo 2018-09 Yes [id number] I10 - [facility] 11-01 Dispense ity o f Supply Kit 00:00: blood [place] 00 pressure Medical cuff (any Branch brand), take BP at home BID Miscellaneo 2018-09 Yes [id number] I10 - [facility] 11-01 Dispense ity o f Supply Kit 00:00: blood [place] 00 pressure Medical cuff (any Branch brand), take BP at home BID Miscellaneo 2019- Yes [id number] I10 - U nivers [facility] 11-01 Dispense ity o f Supply Kit 00:00: blood [place] 00 pressure Medical cuff (any Branch brand), take BP at home BID Miscellaneo 2018- Yes [id number] I10 - U nivers [facility] 11-01 Dispense ity o f Supply Kit 00:00: blood [place] 00 pressure Medical cuff (any Branch brand), take BP at home BID Immunizations Ordered Filled Immunization Date Status Comments [facility] e Immunization Name Name Influenza Virus 2020-07-27 Completed Universit y of Vaccine [place] .5 mL 00:00:00 [place] [facility] IM 6+ MO Branch Influenza Virus 2020-07-27 Completed Universit y of Vaccine [place] .5 mL 00:00:00 [place] [facility] IM 6+ MO Branch Influenza Virus 2020-07-27 Completed Universit y of Vaccine [place] .5 mL 00:00:00 [place] [facility] IM 6+ MO Branch Influenza Virus 2020-07-27 Completed Universit y of Vaccine [place] .5 mL 00:00:00 [place] [facility] IM 6+ MO Branch Influenza Virus 2020-07-27 Completed Universit y of Vaccine Quad .5 mL 00:00:00 [place] [facility] IM 6+ MO Branch Influenza Virus 2020-07-27 Completed Universit y of Vaccine Quad .5 mL 00:00:00 [place] [facility] IM 6+ MO Branch Influenza Virus 2020-07-27 Completed Universit y of Vaccine [place] .5 mL 00:00:00 [place] [facility] IM 6+ MO Branch Influenza Virus 2020-07-27 Completed Universit y of Vaccine Quad .5 mL 00:00:00 [place] [facility] IM 6+ MO Branch Influenza Virus 2020-07-27 Completed Universit y of Vaccine Quad .5 mL 00:00:00 [place] [facility] IM 6+ MO Branch Influenza Virus 2020-07-27 Completed Universit y of Vaccine Quad .5 mL 00:00:00 [place] [facility] IM 6+ MO Branch Influenza Virus 2020-07-27 Completed Universit y of Vaccine Quad .5 mL 00:00:00 [place] [facility] IM 6+ MO Branch Influenza Virus 2020-07-27 Completed Universit y of Vaccine Quad .5 mL 00:00:00 [place] [facility] IM 6+ MO Branch Influenza Virus 2020-07-27 Completed Universit y of Vaccine Quad .5 mL 00:00:00 [place] [facility] IM 6+ MO Branch Influenza Virus 2020-07-27 Completed Universit y of Vaccine Quad .5 mL 00:00:00 [place] [facility] IM 6+ MO Branch Influenza Virus 2020-07-27 Completed Universit y of Vaccine Quad .5 mL 00:00:00 [place] [facility] IM 6+ MO Branch Influenza Virus 2020-07-27 Completed Universit y of Vaccine Quad .5 mL 00:00:00 [facility] [place] [facility] 6+ MO Branch Influenza Virus 2020-07-27 Completed Universit y of Vaccine Quad .5 mL 00:00:00 [facility] [place] [facility] 6+ MO Branch Pneumococcal 13 2019-06-01 Completed Universit y of Conjugate, PCV13 00:00:00 [facility] dical (Prevnar 13) Branch [facility] 2019-06-01 Completed University of 00:00:00 [facility] Pneumococcal 13 2019-06-01 Completed Universit y of Conjugate, PCV13 00:00:00 [facility] dical (Prevnar 13) Branch [facility] 2019-06-01 Completed University of 00:00:00 [facility] Pneumococcal 13 2019-06-01 Completed Universit y of Conjugate, PCV13 00:00:00 [facility] dical (Prevnar 13) Branch [facility] 2019-06-01 Completed University of 00:00:00 [facility] Pneumococcal 13 2019-06-01 Completed Universit y of Conjugate, PCV13 00:00:00 [facility] dical (Prevnar 13) Branch [facility] 2019-06-01 Completed University of 00:00:00 [facility] Pneumococcal 13 2019-06-01 Completed Universit y of Conjugate, PCV13 00:00:00 [facility] dical (Prevnar 13) Branch [facility] 2019-06-01 Completed University of 00:00:00 [facility] Pneumococcal 13 2019-06-01 Completed Universit y of Conjugate, PCV13 00:00:00 [facility] dical (Prevnar 13) Branch [facility] 2019-06-01 Completed University of 00:00:00 [facility] Pneumococcal 13 2019-06-01 Completed Universit y of Conjugate, PCV13 00:00:00 [facility] dical (Prevnar 13) Branch [facility] 2019-06-01 Completed University of 00:00:00 [facility] Pneumococcal 13 2019-06-01 Completed Universit y of Conjugate, PCV13 00:00:00 [facility] dical (Prevnar 13) Branch [facility] 2019-06-01 Completed University of 00:00:00 [facility] Pneumococcal 13 2019-06-01 Completed Universit y of Conjugate, PCV13 00:00:00 [facility] dical (Prevnar 13) Branch [facility] 2019-06-01 Completed University of 00:00:00 [facility] Pneumococcal 13 2019-06-01 Completed Universit y of Conjugate, PCV13 00:00:00 [facility] dical (Prevnar 13) Branch [facility] 2019-06-01 Completed University of 00:00:00 [facility] Pneumococcal 13 2019-06-01 Completed Universit y of Conjugate, PCV13 00:00:00 [facility] dical (Prevnar 13) Branch [facility] 2019-06-01 Completed University of 00:00:00 [facility] Pneumococcal 13 2019-06-01 Completed Universit y of Conjugate, PCV13 00:00:00 [facility] dical (Prevnar 13) Branch [facility] 2019-06-01 Completed University of 00:00:00 [facility] Pneumococcal 13 2019-06-01 Completed Universit y of Conjugate, PCV13 00:00:00 [facility] dical (Prevnar 13) Branch [facility] 2019-06-01 Completed University of 00:00:00 [facility] Pneumococcal 13 2019-06-01 Completed Universit y of Conjugate, PCV13 00:00:00 [facility] dical (Prevnar 13) Branch [facility] 2019-06-01 Completed University of 00:00:00 [facility] Pneumococcal 13 2019-06-01 Completed Universit y of Conjugate, PCV13 00:00:00 [facility] dical (Prevnar 13) Branch [facility] 2019-06-01 Completed University of 00:00:00 [facility] Pneumococcal 13 2019-06-01 Completed Universit y of Conjugate, PCV13 00:00:00 [facility] dical (Prevnar 13) Branch [facility] 2019-06-01 Completed [facility] 00:[facility]:00 [facility] [facility] Pneumococcal 13 2019-06-01 Completed Universit y of Conjugate, PCV13 00:00:00 [facility] dical (Prevnar 13) Branch [facility] 2019-06-01 Completed University of 00:00:00 [facility] Vital Signs Vital Name Observation Time Observation Value Comments Source Systolic blood 2023-02-07 15:01:00 136 mm[Hg] Univer sity of pressure [facility] Diastolic blood 2023-02-07 15:01:00 80 mm[Hg] Unive rsity of pressure [facility] Heart rate 2023-02-07 15:00:00 66 /min [facility] Respiratory rate 2023-02-07 15:00:00 18 /min Univ ersity [facility] Body height 2023-02-07 15:00:00 152.4 cm [facility] Body weight 2023-02-07 15:00:00 63.549 kg [facility] BMI 2023-02-07 15:00:00 27.36 kg/m2 [facility] Oxygen saturation in 2023-02-07 15:00:00 98 /min University of Arterial blood by [place] [employer] damian Pulse oximetry Branch Systolic blood 2022-08-14 14:25:00 109 mm[Hg] Univer sity of pressure [facility] Diastolic blood 2022-08-14 14:25:00 70 mm[Hg] Unive rsity of pressure [facility] Heart rate 2022-08-14 14:25:00 72 /min [facility] Body temperature 2022-08-14 14:25:00 36.39 Myra Univ [facility] Respiratory rate 2022-08-14 14:25:00 18 /min Univ ers[facility] Body height 2022-08-14 14:25:00 152.4 cm [facility] Body weight 2022-08-14 14:25:00 64.32 kg [facility] BMI 2022-08-14 14:25:00 27.69 kg/m2 [facility] Oxygen saturation in 2022-08-14 14:25:00 100 /min University of Arterial blood by [employer] damian Pulse oximetry Branch Systolic blood 2022-06-12 19:11:00 135 mm[Hg] Univer sity of pressure [facility] Diastolic blood 2022-06-12 19:11:00 69 mm[Hg] Unive rsity of pressure [facility] Heart rate 2022-06-12 19:11:00 66 /min [facility] Body temperature 2022-06-12 19:11:00 36.28 Myra [facility] Respiratory rate 2022-06-12 19:11:00 18 /min Univ [facility] Body height 2022-06-12 19:11:00 152.4 cm [facility] Body weight 2022-06-12 19:11:00 63.594 kg [facility] BMI 2022-06-12 19:11:00 27.38 kg/m2 [facility] Oxygen saturation in 2022-06-12 19:11:00 99 /min University of Arterial blood by [place] [employer] damain Pulse oximetry Branch Systolic blood 2022-06-02 20:16:00 128 mm[Hg] Univer sity of pressure [facility] Diastolic blood 2022-06-02 20:16:00 62 mm[Hg] Unive rsity of pressure [facility] Heart rate 2022-06-02 20:16:00 68 /min [facility] Body temperature 2022-06-02 20:16:00 36.11 Myra [facility] Respiratory rate 2022-06-02 20:16:00 18 /min Univ [facility] Oxygen saturation in 2022-06-02 20:16:00 100 /min University of Arterial blood by [place] [employer] damian Pulse oximetry Branch Body weight 2022-06-02 07:26:00 63.957 kg [facility] BMI 2022-06-02 07:26:00 23.46 kg/m2 [facility] Body height 2022-06-01 15:51:00 165.1 cm [facility] Systolic blood 2022-06-01 22:47:00 141 mm[Hg] Univer sity of pressure [facility] Diastolic blood 2022-06-01 22:47:00 74 mm[Hg] Unive rsity of pressure [facility] Heart rate 2022-06-01 22:47:00 81 /min [facility] Body temperature 2022-06-01 22:47:00 35.83 Myra [facility] Respiratory rate 2022-06-01 22:47:00 14 /min Univ [facility] Oxygen saturation in 2022-06-01 22:47:00 98 /min University of Arterial blood by [place] [employer] damian Pulse oximetry Branch Body height 2022-06-01 15:51:00 165.1 cm [facility] Body weight 2022-06-01 15:51:00 62.506 kg [facility] BMI 2022-06-01 15:51:00 23.46 kg/m2 [facility] Procedures Procedure Date / Time Performing Clinician Source Performed CBC WITH DIFF 2023-02-08 14:21:00 Sacha Paige [facility] CONSENT/REFUSAL FOR 2023-02-07 14:17:26 Doctor Unassigned, [facility] DIAGNOSIS AND TREATMENT [place] [facility] STATEMENT OF PATIENT 2022-08-14 06:01:00 Doctor Unassigned, [facility] FINANCIAL RESPONSIBILITY [place] [facility] POCT GLUCOSE (AUTOMATED) 2022-06-02 21:31:00 Atul Hernandez Uni versity [facility] POCT GLUCOSE (AUTOMATED) 2022-06-02 21:31:00 Atul Hernandez Uni versity [facility] POCT GLUCOSE (AUTOMATED) 2022-06-02 16:29:00 Atul Hernandez Uni versity of [facility] POCT GLUCOSE (AUTOMATED) 2022-06-02 16:29:00 Atul Hernandez Uni versity of [facility] POCT GLUCOSE (AUTOMATED) 2022-06-02 12:39:00 Atul Hernandez Uni versity of [facility] POCT GLUCOSE (AUTOMATED) 2022-06-02 12:39:00 [facility] MET[facility]OLIC PANEL 2022-06-02 07:38:00 Miguel Garcia [facility] (NA, K, CL, CO2, GLUCOSE, Medica l Branch BUN, CREATININE, CA) CBC WITH DIFF 2022-06-02 07:38:00 Miguel Garcia [facility] BASIC METABOLIC PANEL 2022-06-02 07:38:00 Miguel Garcia [facility] (NA, K, CL, CO2, GLUCOSE, Medica l Branch BUN, CREATININE, CA) CBC WITH DIFF 2022-06-02 07:38:00 Miguel Garcia [facility] POCT GLUCOSE (AUTOMATED) 2022-06-02 01:03:00 Atul Hernandez [facility] POCT GLUCOSE (AUTOMATED) 2022-06-02 01:03:00 Atul Hernandez [facility] LAPAROSCOPIC APPENDECTOMY 2022-06-01 19:56:00 Giacomo La [facility] BASIC METABOLIC PANEL 2022-06-01 14:19:00 Atul Hernandez [facility] (NA, K, CL, CO2, GLUCOSE, Medica l Branch BUN, CREATININE, CA) COVID-19 (ID NOW RAPID 2022-06-01 14:19:00 Atul Hernandez [facility] TESTING) Medical Branch BASIC METABOLIC PANEL 2022-06-01 14:19:00 Atul Hernandez [facility] (NA, K, CL, CO2, GLUCOSE, Medica l Branch BUN, CREATININE, CA) COVID-19 (ID NOW RAPID 2022-06-01 14:19:00 Atul Hernandez [facility] TESTING) Medical Branch LAB ONLY COVID 2022-06-01 14:19:00 Atul Hernandez [facility] INTERPRETATION [facility] CT ABDOMEN PELVIS WO 2022-06-01 13:05:12 Atul Hernandez [facility] CONTRAST [facility] CT ABDOMEN PELVIS WO 2022-06-01 13:05:12 Atul Hernandez [facility] CONTRAST [facility] CBC WITH DIFF 2022-06-01 12:53:00 Atul Hernandez [facility] GLYCOSYLATED HEMOGLOBIN 2022-06-01 12:53:00 [facility] URINALYSIS 2022-06-01 12:53:00 Atul Hernandez [facility] CBC WITH DIFF 2022-06-01 12:53:00 Atul Hernandez [facility] GLYCOSYLATED HEMOGLOBIN 2022-06-01 12:53:00 [facility]dirahman [facility] URINALYSIS 2022-06-01 12:53:00 Atul Hernandez [place] o [facility] CONSENT/REFUSAL FOR 2022-06-01 12:24:32 Doctor Sheryl Cagle [facility] DIAGNOSIS AND TREATMENT [facility] CONSENT/REFUSAL FOR 2022-06-01 12:24:32 Sheryl Moses [facility] DIAGNOSIS AND TREATMENT [place] [facility] HOSPITAL ADMISSION 2022-06-01 05:01:00 Telma Moses [facility] Name [facility] EXTERNAL PROVIDER RECORDS 2022-02-21 05:01:00 Doctor [facility] Encounters Start End Encounter Admission Attending Care Care Encounter Source Date/Time Date/Time Type Type Clinicians Facility Department ID 2023-02-08 2023-02-08 Arch Support Technician 2, Adc Lab [facility] 1.2.840.114 [id number] [facility] 08:45:00 10:01:59 Visit Sacha Paige 350.1.13.10 ity [facility] [place] [phone] Ma dical NAL 353 [facility] 2023-02-08 2023-02-08 [facility] [id number] Univers 08:45:00 08:45:00 SACHA [facility] 2023-02-07 2023-02-07 [id number] Univers 09:40:00 11:07:02 SACHA simmons [facility] 2023-02-07 2023-02-07 Office [facility] 1.2.840.114 [id number] Univers 09:40:00 11:07:02 Visit Sacha CROWDER 350.1.13.10 i ty [facility] 4[place] [id number] Ma dical NAL 044 [facility] 2023-02-07 2023-02-07 Orders Doctor WANG 1.2.840.114 [id number] Univers 00:00:00 00:00:00 Only Unassigned, PAU 350.1.13.10 ity [facility] 4.2.7.2.686 Tobi as [phone] [address] 2022-11-09 2022-11-09 Refill [facility] 1.2.840.114 [id number] Univers 00:00:00 00:00:00 Sacha CROWDER 350.1.13.10 i ty of [facility] 4[place] [id number] Ma dical NAL 044 [facility] 2022-08-14 2022-08-14 Outpatient R JONATHAN TAVARES [facility] [id number] Univers 08:30:00 09:12:55 JONATHAN TAVARES ity [facility] 2022-08-14 2022-08-14 Office [facility] 1.2.840.114 [id number] Univers 08:30:00 09:12:55 Visit Jonathan CROWDER 350.1.13.10 [place] [phone] Ma dic[address] 2022-08-14 2022-08-14 Orders Doctor KATHLEEN 1.2.840.114 [id number] Univers 00:00:00 00:00:00 Only Unassigned, PAU 350.1.13.10 ity of [place] [facility] 4.2.7.2.686 Tobi as [phone] [address] 2022-06-12 2022-06-12 [facility] [id number] Univers 14:00:00 14:55:53 GIACOMO simmons [facility] 2022-06-12 2022-06-12 Office [facility] [id number] Univers 14:00:00 14:55:53 Visit Giacomo CROWDER 350.1.13.10 i ty of [facility] 4[place] [phone] Ma dical [facility] [address] [facility] 2022-06-06 2022-06-06 Telephone [facility] 1.2.840.114 [id number] Univers 00:00:00 00:00:00 Giacomo CROWDER 350.1.13.10 i ty [place] [phone] Ma dical NAL 188 Branch [facility] 2022-06-01 2022-06-02 Outpatient X [facility] [id number] Univers 07:29:00 17:34:00 MIGUEL [facility] 2022-06-01 2022-06-02 Emergency Atul Hernandez [facility] 1.2.840.1 [id number] Univers 07:29:00 17:34:00 Merle Garciajocelyn CROWDER 350.1.13.10 ity [facility] [place]7.2.[place] [id number] [place] [id number] [place] 2022-06-01 2022-06-01 Surgery [facility] [id number] Univers 15:30:00 17:48:00 Giacomo CROWDER 350.1.13.10 i ty [place]ICAL [phone] [facility] 020 Branch 2022-05-04 2022-05-04 Outpatient R GRECIA [facility] [id number] Univers 11:20:00 11:20:00 [facility] 2022-05-04 2022-05-04 Outpatient R GRECIA [facility] [id number] Univers 11:20:00 11:20:00 SACHA [facility] 2022-05-04 2022-05-04 Outpatient R GRECIA [facility] [id number] Univers 11:20:00 11:20:00 SACHA [facility] 2022-04-30 2022-04-30 Outpatient Amy [facility]ISER [facility] [id number] Univers 10:00:00 10:00:00 CATHI [facility] 2022-04-30 2022-04-30 Outpatient R JOB [facility] [id number] Univers 10:00:00 10:00:00 CATHI [facility] 2022-04-30 2022-04-30 [facility] [id number] [facility] 10:00:00 10:00:00 CATHI iris [facility] 2022-02-21 2022-02-21 Orders Doctor KATHLEEN 1.2.840.114 [id number] Univers 00:00:00 00:00:00 Only Unassigned, PAU 350.1.13.10 ity of [place] [facility] 4.2.7.2.686 [place]obi as [id number] [address] 2022-02-16 2022-02-16 Telephone [facility] 1.2.840.114 [id number] Univers 00:00:00 00:00:00 Sacha CROWDER 350.1.13.10 i [place] [id number] Ma dical NAL 044 [facility] 2022-02-06 2022-02-06 [facility]phone [facility] 1.2.840.114 [id number] Univers 00:00:00 00:00:00 Sacha CROWDER 350.1.13.10 i ty [place] [id number] Ma dical NAL 044 [facility] 2022-02-01 2022-02-01 Arch Support Technician Omayra, Derick Lab Main [facility] [id number] [id number] [facility] 12:30:00 12:45:00 Visit Sacha Paige 350.1.13.10 ity [place] [phone] Ma dical [facility] [address] [facility] 2022-02-01 2022-02-01 Outpatient R GRECIA [facility] [id number] Univers 12:30:00 12:30:00 SACHA simmons [facility] 2022-02-01 2022-02-01 Outpatient R GRECIA [facility] [id number] Univers 11:20:00 11:59:56 SACHA simmons [facility] 2022-02-01 2022-02-01 Office [facility] 1.2.840.114 [id number] Univers 11:20:00 11:59:56 Visit Sacha CROWDER 350.1.13.10 i ty of [facility] 4.2.7.2.[place] [id number] [address] 2022-02-01 2022-02-01 Outpatient R GRECIA RIKIMBERLY [facility] [id number] Univers 11:20:00 11:20:00 SACHA simmons [facility] 2022-02-01 2022-02-01 Orders Doctor KATHLEEN 1.2.840.114 [id number] Univers 00:00:00 00:00:00 Only Unassigned, PAU 350.1.13.10 ity of [place] [facility] 4.2.7.2.686 [place] as [id number] [address] 2022-02-01 2022-02-01 Letter Doctor KATHLEEN 1.2.840.114 [id number] Univers 00:00:00 00:00:00 (Out) Unassigned, PAU 350.1.13.10 ity of [place] [facility] 4.2.7.2.686 [place]obi as [id number] [address] 2022-02-01 2022-02-01 Patient Ru [facility] 1.2.840.114 [id number] Univers 00:00:00 00:00:00 Outreach Ilene CROWDER 350.1.13.10 ity [facility] 4[place] [id number] [address] 2021-12-06 2021-12-06 Orders Doctor KATHLEEN 1.2.840.114 [id number] Univers 00:00:00 00:00:00 Only Unassigned, PAU 350.1.13.10 ity of [place] [facility] 4.2.7.2.686 Tobi as [id number] [address] 2021-12-01 2021-12-01 Telephone Grecia [facility] 1.2.840.114 [id number] Univers 00:00:00 00:00:00 Sacha CROWDER 350.1.13.10 i ty of [facility] 4[place] [id number] [address] 2021-12-01 2021-12-01 Telephone [facility] 1.2.840.114 [id number] Univers 00:00:00 00:00:00 Sacha CROWDER 350.1.13.10 i ty of [facility] 4.2.7.2.[place] [id number] Ma dicwv NAL [address] [place] [address] 2021-11-17 2021-11-17 Telephone [facility] 1.2.840.114 [id number] Univers 00:00:00 00:00:00 Sacha CROWDER 350.1.13.10 i ty [place] [id number] Ma dical NAL [address] [place] [address] 2021-11-10 2021-11-10 Telephone [facility] 1.2.840.114 [id number] Univers 00:00:00 00:00:00 Sacha CROWDER 350.1.13.10 i ty of [place] 4[place].2.[place] [id number] Ma dical NAL [address] [place] [address] 2021-11-06 2021-11-06 Telephone [facility] 1.2.840.114 [id number] Univers 00:00:00 00:00:00 Sacha CROWDER 350.1.13.10 i ty of [place] 4[place] [id number] [facility] NAL [address] [place] [address] 2021-11-02 2021-11-02 Outpatient R GRECIA [facility] [id number] Univers 10:40:00 11:48:22 SACHA simmons [facility] 2021-11-02 2021-11-02 Office [facility] 1.2.840.114 [id number] Univers 10:40:00 11:48:22 Visit Sacha CROWDER 350.1.13.10 i ty of [facility] 4.2.7.2.[place] [id number] Ma dicwv NAL [address] [place] [address] 2021-11-02 2021-11-02 Orders Doctor WANG 1.2.840.114 [id number] Univers 00:00:00 00:00:00 Only Unassigned, PAU 350.1.13.10 [facility] 4.2.7.2.686 [facility] [id number] [address] 2021-04-25 2021-04-25 Outpatient R JOB [facility] [id number] Univers 16:30:00 16:30:00 CATHI marisel [facility] 2021-04-06 2021-04-06 Outpatient R JOB [facility] [id number] Univers 13:30:00 13:30:00 CATHI [facility] 2020-11-29 2020-11-29 Outpatient R GRECIA [facility] [id number] Univers 13:20:00 13:20:00 SACHA marisel [facility] 2020-11-01 2020-11-01 [facility] [id number] Univers 11:00:00 11:00:00 SACHA [facility] 2020-07-27 2020-07-27 Outpatient R GRECIA [facility] [id number] Univers 15:20:00 15:20:00 SACHA [facility] 2020-05-31 2020-05-31 Outpatient R GRECIA [facility] [id number] Univers 14:00:00 14:00:00 SACHA marisel [facility] 2020-04-18 2020-04-18 Outpatient R JOB [facility] [id number] Univers 00:00:00 00:00:00 CATHI [facility] 2020-04-11 2020-04-11 Outpatient R JOB [facility] [id number] Univers 00:00:00 00:00:00 CATHI [facility] 2020-04-05 2020-04-05 Outpatient R [facility] [id number] Univers 08:15:00 08:15:00 [facility] 2020-04-04 2020-04-04 Outpatient R JOB [facility] [id number] Univers 10:30:00 10:30:00 [facility] 2020-03-29 2020-03-29 Outpatient R JOB [facility] [id number] Univers 14:00:00 14:00:00 CATHI [facility] 2020-02-25 2020-02-25 Outpatient [facility] [id number] Univers 15:20:00 15:20:00 SACHA [facility] 2020-02-19 2020-02-20 Outpatient X [facility] [id number] Univers 13:08:12 12:53:00 MIGUEL [facility] 2020-02-19 2020-02-19 Outpatient R [facility] [id number] Univers 11:40:00 11:40:00 [facility] 2020-02-16 2020-02-16 Outpatient R BECKYISHA [facility] [id number] Univers 09:00:00 09:00:00 [facility] 2019-11-24 2019-11-24 [facility] [id number] Univers 13:40:00 13:40:00 [facility] Results Test Description Test Time Test Comments Results Result Comments Source POCT GLUCOSE (AUTOMATED) 2022-06-02 21:35:38 Test Item Value Reference Range Interpretation Comme nts POCT GLU (test code = 7433693075) 130 mg/dL 70-110 H Lab Interpretation (test code = 87284-4) Abnormal [facility] GLUCOSE (AUTOMATED)2022-06-02 21:35:38 Test Item Value Reference Range Interpretation Comments POCT GLU (test code = 3791591232) 130 mg/dL 70-110 H Lab Interpretation (test code = Abnormal 16334-3) [facility] GLUCOSE (AUTOMATED)2022-06-02 16:48:56 Test Item Value Reference Range Interpretation Comments POCT GLU (test code = 6556926096) 183 mg/dL 70-110 H Lab Interpretation (test code = Abnormal 59362-8) [facility] GLUCOSE (AUTOMATED)2022-06-02 16:48:56 Test Item Value Reference Range Interpretation Comments POCT GLU (test code = 6390747921) 183 mg/dL 70-110 H Lab Interpretation (test code = Abnormal 78191-8) [facility] GLUCOSE (AUTOMATED)2022-06-02 12:58:47 Test Item Value Reference Range Interpretation Comments POCT GLU (test code = 0662896102) 138 mg/dL 70-110 H Lab Interpretation (test code = Abnormal 58175-1) [facility] GLUCOSE (AUTOMATED)2022-06-02 12:58:47 Test Item Value Reference Range Interpretation Comments POCT GLU (test code = 2261522774) 138 mg/dL 70-110 H Lab Interpretation (test code = Abnormal 13281-3) [facility] Metabolic Panel (NA, K, CL, CO2, GLUCOSE, BUN, CREATININE, CA)2022-06-02 10:39:57 Test Item Value Reference Range Interpretation Comments NA (test code = 133 mmol/L 135-145 L 4583363007) K (test code = 3.8 mmol/L 3.5-5 7580632933) CL (test code = 104 mmol/L 98-108 3006003528) CO2 TOTAL (test code = 21 mmol/L 23-31 L 3924563837) AGAP (test code = 2-16 7790329857) BUN (test code = 11 mg/dL 7-23 9364221574) GLUCOSE (test code = 230 mg/dL 70-110 H 4293860259) CREATININE (test code = 0.60 mg/dL 0.5-1.04 8834286759) CALCIUM (test code = 8.1 mg/dL 8.6-10.6 L 6424048203) eGFR (test code = mL/min/1.73m2 3991351237) AMY (test code = AMY) Association of Glomerular Filtration Rate (GFR) and Staging of Kidney Disease* + --+ --+ ------+| GFR (mL/min/1.73 m2) ?| With Kidney Damage ?| ?Without Kidney Damage+ --------+ --------+ +| ?>90 ?| ?Stage one ?| ? Normal ?+ ---+ ---+ -------+| ?60-89 ?| ?Stage two ?| ? Decreased GFR ? + --+ --+ ------+| ?30-59 ?| ?Stage three ?| ? Stage three ? + --+ --+ ------+| ?15-29 ?| ?Stage four ? | ? Stage four ?+ ---+ ---+ -------+| ?<15 (or dialysis) ? ?| ?Stage five ? | ? Stage five ?+ ---+ ---+ -------+ *Each stage assumes the associated GFR level has been in effect for at least three months. ?Stages 1 to 5, with or without kidney disease, indicate chronic kidney disease. Notes: Determination of stages one and two (with eGFR >59mL/min/1.73 m2) requires estimation of kidney damage for at least three months as defined by structural or functional abnormalities of the kidney, manifested by either:Pathological abnormalities or Markers of kidney damage (including abnormalities in the composition of the blood or urine or abnormalities in imaging tests). Lab Interpretation Abnormal (test code = 58462-8) [facility] (NA, K, CL, CO2, GLUCOSE, BUN, CREATININE, CA)2022-06-02 10:39:57 Test Item Value Reference Range Interpretation Comments NA (test code = 133 mmol/L 135-145 L 7947934232) K (test code = 3.8 mmol/L 3.5-5 5636520072) CL (test code = 104 mmol/L 98-108 6576590425) CO2 TOTAL (test code = 21 mmol/L 23-31 L 5211055013) AGAP (test code = 2-16 2191782855) BUN (test code = 11 mg/dL 7-23 9140708992) GLUCOSE (test code = 230 mg/dL 70-110 H 8159875645) CREATININE (test code = 0.60 mg/dL 0.5-1.04 0922614255) CALCIUM (test code = 8.1 mg/dL 8.6-10.6 L 0457907953) eGFR (test code = mL/min/1.73m2 9021851349) AMY (test code = AMY) Association of Glomerular Filtration Rate (GFR) and Staging of Kidney Disease* + --+ --+ ------+| GFR (mL/min/1.73 m2) ?| With Kidney Damage ?| ?Without Kidney Damage+ --------+ --------+ +| ?>90 ?| ?Stage one ?| ? Normal ?+ ---+ ---+ -------+| ?60-89 ?| ?Stage two ?| ? Decreased GFR ? + --+ --+ ------+| ?30-59 ?| ?Stage three ?| ? Stage three ? + --+ --+ ------+| ?15-29 ?| ?Stage four ? | ? Stage four ?+ ---+ ---+ -------+| ?<15 (or dialysis) ? ?| ?Stage five ? | ? Stage five ?+ ---+ ---+ -------+ *Each stage assumes the associated GFR level has been in effect for at least three months. ?Stages 1 to 5, with or without kidney disease, indicate chronic kidney disease. Notes: Determination of stages one and two (with eGFR >59mL/min/1.73 m2) requires estimation of kidney damage for at least three months as defined by structural or functional abnormalities of the kidney, manifested by either:Pathological abnormalities or Markers of kidney damage (including abnormalities in the composition of the blood or urine or abnormalities in imaging tests). Lab Interpretation Abnormal (test code = 71828-9) [facility] with [id number] 08:43:28 Test Item Value Reference Range Interpretation Comments WBC (test code = See_Comment [Automated 4946-2) message] The sy stem which generated this result transmitted reference range : 4.30 - 11.10 10*3/?L. The reference range was not used to interpret this result as normal/abnormal . RBC (test code = See_Comment [Automated 178-8) message] The sy stem which generated this result transmitted reference range : 3.93 - 5.25 10*6/?L. The reference range was not used to interpret this result as normal/abnormal . HGB (test code = 10.7 g/dL 11.6-15 L 718-7) HCT (test code = 32.4 % 35.7-45.2 L 4544-3) MCV (test code = 81.6 fL 80.6-95.5 787-2) MCH (test code = 27.0 pg 25.9-32.8 785-6) MCHC (test code = 33.0 g/dL 31.6-35.1 786-4) RDW-SD (test code = 39.8 fL 39-49.9 72816-5) RDW-CV (test code = 13.4 % 12-15.5 788-0) PLT (test code = See_Comment [Automated 777-3) message] The sy stem which generated this result transmitted reference range : 166 - 358 10*3/ ?L. The reference r elida was not used to interpret this result as normal/abnormal . MPV (test code = 10.8 fL 9.5-12.9 12914-9) NRBC/100 WBC (test See_Comment [Automat ed code = 8991215021) message] The system which generated this result transmitted reference range : 0.0 - 10.0 /100 WBCs. The refer ence range was not u sed to interpret th is result as normal/abnormal . NRBC x10^3 (test code See_Comment [Auto mated = 8722107018) message] The s ystem which generated this result transmitted reference range : 10*3/?L. The reference range was not used to interpret this result as normal/abnormal . GRAN MAT (NEUT) % 90.6 % (test code = 770-8) IMM GRAN % (test code 0.40 % = 5406265881) LYMPH % (test code = 7.7 % 736-9) MONO % (test code = 1.2 % 5905-5) EOS % (test code = 0.0 % 713-8) BASO % (test code = 0.1 % 706-2) GRAN MAT x10^3(ANC) 6.63 10*3/uL 1.88-7.09 (test code = 0864277952) IMM GRAN x10^3 (test 0.03 10*3/uL 0-0.06 code = 0122722948) LYMPH x10^3 (test code 0.56 10*3/uL 1.32-3.29 L = 731-0) MONO x10^3 (test code 0.09 10*3/uL 0.33-0.92 L = 742-7) EOS x10^3 (test code = 0.03-0.39 L 711-2) BASO x10^3 (test code 0.01-0.07 = 704-7) Lab Interpretation Abnormal (test code = 14058-4) [facility] with [id number] 08:43:28 Test Item Value Reference Range Interpretation Comments WBC (test code = See_Comment [Automated 6690-2) message] The sy stem which generated this result transmitted reference range : 4.30 - 11.10 10*3/?L. The reference range was not used to interpret this result as normal/abnormal . RBC (test code = See_Comment [Automated 789-8) message] The sy stem which generated this result transmitted reference range : 3.93 - 5.25 10*6/?L. The reference range was not used to interpret this result as normal/abnormal . HGB (test code = 10.7 g/dL 11.6-15 L 718-7) HCT (test code = 32.4 % 35.7-45.2 L 4544-3) MCV (test code = 81.6 fL 80.6-95.5 787-2) MCH (test code = 27.0 pg 25.9-32.8 785-6) MCHC (test code = 33.0 g/dL 31.6-35.1 786-4) RDW-SD (test code = 39.8 fL 39-49.9 18523-8) RDW-CV (test code = 13.4 % 12-15.5 788-0) PLT (test code = See_Comment [Automated 777-3) message] The sy stem which generated this result transmitted reference range : 166 - 358 10*3/ ?L. The reference r elida was not used to interpret this result as normal/abnormal . MPV (test code = 10.8 fL 9.5-12.9 87631-0) NRBC/100 WBC (test See_Comment [Automat ed code = 7827162515) message] The system which generated this result transmitted reference range : 0.0 - 10.0 /100 WBCs. The refer ence range was not u sed to interpret th is result as normal/abnormal . NRBC x10^3 (test code See_Comment [Auto mated = 6244525472) message] The s ystem which generated this result transmitted reference range : 10*3/?L. The reference range was not used to interpret this result as normal/abnormal . GRAN MAT (NEUT) % 90.6 % (test code = 770-8) IMM GRAN % (test code 0.40 % = 6507023424) LYMPH % (test code = 7.7 % 736-9) MONO % (test code = 1.2 % 5905-5) EOS % (test code = 0.0 % 713-8) BASO % (test code = 0.1 % 706-2) GRAN MAT x10^3(ANC) 6.63 10*3/uL 1.88-7.09 (test code = 4184754073) IMM GRAN x10^3 (test 0.03 10*3/uL 0-0.06 code = 1934589925) LYMPH x10^3 (test code 0.56 10*3/uL 1.32-3.29 L = 731-0) MONO x10^3 (test code 0.09 10*3/uL 0.33-0.92 L = 742-7) EOS x10^3 (test code = 0.03-0.39 L 711-2) BASO x10^3 (test code 0.01-0.07 = 704-7) Lab Interpretation Abnormal (test code = 78521-6) [facility] GLUCOSE (AUTOMATED)2022-06-02 01:05:51 Test Item Value Reference Range Interpretation Comments POCT GLU (test code = 8541423175) 169 mg/dL 70-110 H Lab Interpretation (test code = Abnormal 19316-0) [facility] GLUCOSE (AUTOMATED)2022-06-02 01:05:51 Test Item Value Reference Range Interpretation Comments POCT GLU (test code = 6306218431) 169 mg/dL 70-110 H Lab Interpretation (test code = Abnormal 01211-5) [facility] METABOLIC PANEL (NA, K, CL, CO2, GLUCOSE, BUN, CREATININE, CA)2022-06-01 14:48:28 Test Item Value Reference Range Interpretation Comments NA (test code = 137 mmol/L 135-145 6974287211) K (test code = 4.1 mmol/L 3.5-5 8782247569) CL (test code = 102 mmol/L 98-108 1190815942) CO2 TOTAL (test code = 29 mmol/L 23-31 5164186835) AGAP (test code = 2-16 4710525753) BUN (test code = 13 mg/dL 7-23 6855835692) GLUCOSE (test code = 145 mg/dL 70-110 H 8269804092) CREATININE (test code = 0.60 mg/dL 0.5-1.04 7854745487) CALCIUM (test code = 9.0 mg/dL 8.6-10.6 1972569477) eGFR (test code = mL/min/1.73m2 9414847564) AMY (test code = AMY) Association of Glomerular Filtration Rate (GFR) and Staging of Kidney Disease* + --+ --+ ------+| GFR (mL/min/1.73 m2) ?| With Kidney Damage ?| ?Without Kidney Damage+ --------+ --------+ +| ?>90 ?| ?Stage one ?| ? Normal ?+ ---+ ---+ -------+| ?60-89 ?| ?Stage two ?| ? Decreased GFR ? + --+ --+ ------+| ?30-59 ?| ?Stage three ?| ? Stage three ? + --+ --+ ------+| ?15-29 ?| ?Stage four ? | ? Stage four ?+ ---+ ---+ -------+| ?<15 (or dialysis) ? ?| ?Stage five ? | ? Stage five ?+ ---+ ---+ -------+ *Each stage assumes the associated GFR level has been in effect for at least three months. ?Stages 1 to 5, with or without kidney disease, indicate chronic kidney disease. Notes: Determination of stages one and two (with eGFR >59mL/min/1.73 m2) requires estimation of kidney damage for at least three months as defined by structural or functional abnormalities of the kidney, manifested by either:Pathological abnormalities or Markers of kidney damage (including abnormalities in the composition of the blood or urine or abnormalities in imaging tests). Lab Interpretation Abnormal (test code = 81773-4) [facility] (NA, K, CL, CO2, GLUCOSE, BUN, CREATININE, CA)2022-06-01 14:48:28 Test Item Value Reference Range Interpretation Comments NA (test code = 137 mmol/L 135-145 0735622743) K (test code = 4.1 mmol/L 3.5-5 0927996193) CL (test code = 102 mmol/L 98-108 9048301917) CO2 TOTAL (test code = 29 mmol/L 23-31 3097796098) AGAP (test code = 2-16 2899659957) BUN (test code = 13 mg/dL 7-23 6222143004) GLUCOSE (test code = 145 mg/dL 70-110 H 9238610195) CREATININE (test code = 0.60 mg/dL 0.5-1.04 9958433601) CALCIUM (test code = 9.0 mg/dL 8.6-10.6 1876398879) eGFR (test code = mL/min/1.73m2 1349948132) AMY (test code = AMY) Association of Glomerular Filtration Rate (GFR) and Staging of Kidney Disease* + --+ --+ ------+| GFR (mL/min/1.73 m2) ?| With Kidney Damage ?| ?Without Kidney Damage+ --------+ --------+ +| ?>90 ?| ?Stage one ?| ? Normal ?+ ---+ ---+ -------+| ?60-89 ?| ?Stage two ?| ? Decreased GFR ? + --+ --+ ------+| ?30-59 ?| ?Stage three ?| ? Stage three ? + --+ --+ ------+| ?15-29 ?| ?Stage four ? | ? Stage four ?+ ---+ ---+ -------+| ?<15 (or dialysis) ? ?| ?Stage five ? | ? Stage five ?+ ---+ ---+ -------+ *Each stage assumes the associated GFR level has been in effect for at least three months. ?Stages 1 to 5, with or without kidney disease, indicate chronic kidney disease. Notes: Determination of stages one and two (with eGFR >59mL/min/1.73 m2) requires estimation of kidney damage for at least three months as defined by structural or functional abnormalities of the kidney, manifested by either:Pathological abnormalities or Markers of kidney damage (including abnormalities in the composition of the blood or urine or abnormalities in imaging tests). Lab Interpretation Abnormal (test code = 26909-0) [facility]"
[2023-02-17] MEDS ORDERED: METOCLOPRAMIDE 10 MG/2mL INJ ONE (22:36)
[2023-02-17] MEDS ORDERED: DIPHENHYDRAMINE 50 MG/ML VIAL ONE (22:37)
[2023-02-17] MEDS ORDERED: ACETAMINOPHEN 500 MG TAB ONE (22:37)
[2023-02-17] MEDS ORDERED: NA CHLORIDE 0.9% 1,000 ML ONE (22:37)
[2023-02-17] MEDS ORDERED: Magnesium Sulfate 2gm IVPB 2 G/50 ML BAG IV ONE (22:38)
[2023-02-17 22:43] LABS: Absolute Lymphocytes (CBC) 1.7 K/uL (0.7-4.9); Hematocrit 35.3 % (36.0-45.0); Lymphocytes % 21.8 % (15.3-44.8); MCV 79.4 fL (80-100); MPV 8.2 fL (7.6-11.3); RBC Red Blood Cell Count 4.44 M/uL (3.86-4.86)
[2023-02-17 23:04] LABS: Albumin 3.5 g/dL (3.4-5.0); Bilirubin Total 0.5 mg/dL (0.2-1.0); Protein, Total 8.3 g/dL (6.4-8.2)
[2023-02-17 23:08] LABS: Potassium 3.6 mEq/L (3.5-5.1)
--- NOTE | 2023-02-18 00:28 | EDPHYS ---
Physician Documentation [facility] Name: Jessie Hodges Age: 52 yrs Sex: Female : 1970 Arrival Date: 02/17/2023 Time: 21:22 Bed 12 Private MD: ED Physician Clay Bertrand HPI: 02/18 04:01 This 52 yrs old Female presents to ER via Ambulatory with complaints of rt Headache. 04:01 Patient presents to the ED with bifrontal headache starting about 45 minutes prior to rt arrival, is acute in onset. The patient also reports rhinorrhea. Denies other acute complaints at this time. Denies neck stiffness. Symptoms are moderate in severity, aching nature, nonradiating, no other aggravating or alleviating factors.. Historical: - Allergies: 02/17 21:46 Clindamycin; pf1 - Home Meds: 21:46 Metformin Oral [Active]; amlodipine oral [Active]; rosuvastatin oral [Active]; pf1 - PMHx: 21:46 Diabetes mellitus; Hypertensive disorder; Hypercholesterolemia; pf1 - PSHx: 21:46 Appendectomy; pf1 - Immunization history:: Adult Immunizations up to date, Last tetanus immunization: > 10 years ago Flu vaccine is up to date. - Social history:: Smoking status: Patient denies any tobacco usage or history of. Patient/guardian denies using alcohol, street drugs. - Family history:: not pertinent. ROS: 02/18 04:01 Constitutional: Negative for fever, chills, and weight loss, Eyes: Negative for injury, rt pain, redness, and discharge, Cardiovascular: Negative for chest pain, palpitations, and edema, Respiratory: Negative for shortness of breath, cough, wheezing, and pleuritic chest pain, Abdomen/GI: Negative for abdominal pain, nausea, vomiting, diarrhea, and constipation, Skin: Negative for injury, rash, and discoloration, Psych: Negative for depression, anxiety, suicide ideation, homicidal ideation, and hallucinations. ENT: Positive for rhinorrhea, sore throat. Neuro: Positive for headache, Negative for altered mental status. Exam: 04:01 Constitutional: This is a well developed, well nourished patient who is awake, alert, rt and in no acute distress. Head/Face: Normocephalic, atraumatic. Chest/axilla: Normal chest wall appearance and motion. Nontender with no deformity. No lesions are appreciated. Cardiovascular: Regular rate and rhythm with a normal S1 and S2. No gallops, murmurs, or rubs. Normal PMI, no JVD. No pulse deficits. Respiratory: Lungs have equal breath sounds bilaterally, clear to auscultation and percussion. No rales, rhonchi or wheezes noted. No increased work of breathing, no retractions or nasal flaring. Abdomen/GI: Soft, non-tender, with normal bowel sounds. No distension or tympany. No guarding or rebound. No evidence of tenderness throughout. Skin: Warm, dry with normal turgor. Normal color with no rashes, no lesions, and no evidence of cellulitis. MS/ Extremity: Pulses equal, no cyanosis. Neurovascular intact. Full, normal range of motion. Neuro: Awake and alert, GCS 15, oriented to person, place, time, and situation. Cranial nerves II-XII grossly intact. Motor strength 5/5 in all extremities. Sensory grossly intact. Cerebellar exam normal. Normal gait. Psych: Awake, alert, with orientation to person, place and time. Behavior, mood, and affect are within normal limits. 04:01 Neck: Supple, full range of motion, no meningismus. Vital Signs: 02/17 21:40 BP 161 / 87; Pulse 78; Resp 18; Temp 97.4; Pulse Ox 100% on R/A; Weight 63.5 kg; Height pf1 5 ft. 0 in. ; Pain 10/10; 23:00 BP 135 / 69; Pulse 81; Resp 16; Pulse Ox 100% on R/A; Pain 5/10; pf1 02/18 00:00 BP 139 / 77; Pulse 89; Resp 16; Pulse Ox 99% on R/A; Pain 0/10; pf1 02/17 21:40 Body Mass Index 27.34 (63.50 kg, 152.4 cm) pf1 02/17 21:40 Pain Scale: Adult pf1 23:00 Pain Scale: Adult pf1 02/18 00:00 Pain Scale: Adult pf1 MDM: 02/17 22:00 Patient medically screened. rt 02/18 04:01 Differential diagnosis: Benign headache, meningitis, encephalitis, intracranial rt hemorrhage, subarachnoid hemorrhage. Data reviewed: vital signs, nurses notes, lab test result(s), radiologic studies. I considered the following discharge prescriptions or medication management in the emergency department Medications were administered in the Emergency Department. See MAR. Independent interpretation of the following test(s) in the Emergency Department CT Scan: My interpretation is No hemorrhage seen on my interpretation CT scan images. Test considered but Not performed: Labs: Neck is supple, full range of motion, no meningismus, patient is afebrile with normal labs, very low suspicion for meningitis, encephalitis, lumbar puncture is not indicated.. Care significantly affected by the following chronic conditions: Diabetes, Hypertension. Counseling: I had a detailed discussion with the patient and/or guardian regarding: the historical points, exam findings, and any diagnostic results supporting the discharge/admit diagnosis, lab results, radiology results, the need for outpatient follow up, to return to the emergency department if symptoms worsen or persist or if there are any questions or concerns that arise at home. Response to treatment: the patient's symptoms have resolved after treatment, the patient's pain is gone. 02/17 22:07 Order name: CBC with Diff; Complete Time: 23:13 rt 02/17 22:07 Order name: CMP; Complete Time: 23:13 rt 02/17 22:07 Order name: CT Head Brain wo Cont rt Administered Medications: 02/17 22:47 Drug: metoCLOPramide IVP 10 mg Route: IVP; Site: right wrist; cg 23:40 Follow up: Response: No adverse reaction; Marked relief of symptoms pf1 22:47 Drug: diphenhydrAMINE IVP 25 mg Route: IVP; Site: right wrist; cg 23:40 Follow up: Response: No adverse reaction; Marked relief of symptoms; Pain is decreased pf1 22:47 Drug: Magnesium Sulfate IVPB 2 grams Route: IVPB; Infused Over: 30 mins; Site: right cg wrist; 23:15 Follow up: Response: No adverse reaction; Marked relief of symptoms; IV Status: pf1 Completed infusion; IV Intake: 100ml 22:47 Drug: Acetaminophen PO 1000 mg Route: PO; cg 23:40 Follow up: Response: No adverse reaction; Marked relief of symptoms; Pain is decreased pf1 22:47 Drug: NS 0.9% IV 1000 ml Route: IV; Rate: 1 bolus; Site: right wrist; cg 23:40 Follow up: Response: No adverse reaction; Marked relief of symptoms; IV Status: pf1 Completed infusion; IV Intake: 1000ml Disposition Summary: 02/18/23 00:27 Discharge Ordered Location: Home rt Problem: new rt Symptoms: are resolved rt Condition: Stable rt Diagnosis - Headache rt Followup: rt - With: Private Physician - When: 2 - 3 days - Reason: Discharge Instructions: - Discharge Summary Sheet rt - General Headache Without Cause rt Forms: - Medication Reconciliation Form rt - Thank You Letter rt - Antibiotic Education rt - Prescription Opioid Use rt Signatures: Dispatcher [employer] Marry Peña, RN RN cg Clay Bertrand MD MD rt Arti Harry RN RN pf1
--- NOTE | 2023-02-18 00:28 | ER ---
Nurse's Notes [facility] Name: Jessie Hodges Age: 52 yrs Sex: Female : 1970 Arrival Date: 02/17/2023 Time: 21:22 Bed 12 Private MD: Diagnosis: Headache Presentation: 02/17 21:40 Chief complaint: Patient states: generalized headache pain of 45 minutes ago with pf1 vomiting x2 episodes,chills and clesr drainage from naris. Coronavirus screen: Vaccine status: Patient reports receiving the 2nd dose of the covid vaccine. 3 doses of Moderna Client denies travel out of the [place] in the last 14 days. Client presents with at least one sign or symptom that may indicate coronavirus-19. Ebola Screen: Patient negative for fever greater than or equal to 101.5 degrees Fahrenheit, and additional compatible Ebola Virus Disease symptoms. Initial Sepsis Screen: Does the patient meet any 2 criteria? No. Patient's initial sepsis screen is negative. Does the patient have a suspected source of infection? No. Patient's initial sepsis screen is negative. Risk Assessment: Do you want to hurt yourself or someone else? Patient reports no desire to harm self or others. 21:40 Method Of Arrival: Ambulatory pf1 21:40 Acuity: CHRISTINE 3 pf1 22:00 Onset of symptoms was February 17, 2023. pf1 Historical: - Allergies: 21:46 Clindamycin; pf1 - Home Meds: 21:46 Metformin Oral [Active]; amlodipine oral [Active]; rosuvastatin oral [Active]; pf1 - PMHx: 21:46 Diabetes mellitus; Hypertensive disorder; Hypercholesterolemia; pf1 - PSHx: 21:46 Appendectomy; pf1 - Immunization history:: Adult Immunizations up to date, Last tetanus immunization: > 10 years ago Flu vaccine is up to date. - Social history:: Smoking status: Patient denies any tobacco usage or history of. Patient/guardian denies using alcohol, street drugs. - Family history:: not pertinent. Screenin:00 [facility] ED Fall Risk Assessment (Adult) History of falling in the last 3 months, pf1 including since admission No falls in past 3 months (0 pts) Confusion or Disorientation No (0 pts) Intoxicated or Sedated No (0 pts) Impaired Gait No (0 pts) Mobility Assist Device Used No (0 pt) Altered Elimination No (0 pt) Score/Fall Risk Level 0 - 2 = Low Risk Oriented to surroundings, Maintained a safe environment, Educated pt \T\ family on fall prevention, incl call for assistance when getting out of bed, Assessed \T\ reinforced patient's understanding of fall precautions, Provided non-skid footwear, Hourly rounding (assess needs \T\ fall precautionary measures) done, Used ambulatory aids as needed (educated on \T\ assisted with), Used gait belt as appropriate. Abuse screen: Denies threats or abuse. Nutritional screening: No deficits noted. Tuberculosis screening: No symptoms or risk factors identified. Assessment: 22:00 General: Appears in no apparent distress. uncomfortable, well groomed, well developed, pf1 Behavior is calm, cooperative, appropriate for age, quiet. 22:00 Pain: Complains of pain in head Pain currently is 10 out of 10 on a pain scale. Pain pf1 began 1 hour ago. Neuro: Level of Consciousness is awake, alert, obeys commands, Oriented to person, place, time, situation, Reports headache in entire. Cardiovascular: No deficits noted. Capillary refill < 3 seconds Patient's skin is warm and dry. Respiratory: No deficits noted. Airway is patent Respiratory effort is even, unlabored, Respiratory pattern is regular, symmetrical. GI: Abdomen is round non-distended, Reports nausea, vomiting. : No deficits noted. No signs and/or symptoms were reported regarding the genitourinary system. EENT:. EENT: Reports nasal discharge clear nasal drainage with chills. Derm: No deficits noted. No signs and/or symptoms reported regarding the dermatologic system. Vital Signs: 21:40 BP 161 / 87; Pulse 78; Resp 18; Temp 97.4; Pulse Ox 100% on R/A; Weight 63.5 kg; Height pf1 5 ft. 0 in. ; Pain 10/10; 23:00 BP 135 / 69; Pulse 81; Resp 16; Pulse Ox 100% on R/A; Pain 5/10; pf1 02/18 00:00 BP 139 / 77; Pulse 89; Resp 16; Pulse Ox 99% on R/A; Pain 0/10; pf1 02/17 21:40 Body Mass Index 27.34 (63.50 kg, 152.4 cm) pf1 02/17 21:40 Pain Scale: Adult pf1 23:00 Pain Scale: Adult pf1 02/18 00:00 Pain Scale: Adult pf1 ED Course: 02/17 21:26 Patient arrived in ED. [id number] 21:28 Clay Bertrand MD is Attending Physician. rt 21:46 Triage completed. pf1 22:00 Patient has correct armband on for positive identification. Bed in low position. Call pf1 light in reach. Side rails up X2. 22:00 Arm band placed on right wrist. pf1 22:45 Inserted saline lock: 20 gauge in right antecubital area, using aseptic technique. pf1 Blood collected. 22:48 CMP Sent. cg 22:48 CBC with Diff Sent. cg 23:37 CT Head Brain wo Cont In Process Unspecified. EDMS 02/18 00:38 No provider procedures requiring assistance completed. IV discontinued, intact, pf1 bleeding controlled, No redness/swelling at site. Pressure dressing applied. Administered Medications: 02/17 22:47 Drug: metoCLOPramide IVP 10 mg Route: IVP; Site: right wrist; cg 23:40 Follow up: Response: No adverse reaction; Marked relief of symptoms pf1 22:47 Drug: diphenhydrAMINE IVP 25 mg Route: IVP; Site: right wrist; cg 23:40 Follow up: Response: No adverse reaction; Marked relief of symptoms; Pain is decreased pf1 22:47 Drug: Magnesium Sulfate IVPB 2 grams Route: IVPB; Infused Over: 30 mins; Site: right cg wrist; 23:15 Follow up: Response: No adverse reaction; Marked relief of symptoms; IV Status: pf1 Completed infusion; IV Intake: 100ml 22:47 Drug: Acetaminophen PO 1000 mg Route: PO; cg 23:40 Follow up: Response: No adverse reaction; Marked relief of symptoms; Pain is decreased pf1 22:47 Drug: NS 0.9% IV 1000 ml Route: IV; Rate: 1 bolus; Site: right wrist; cg 23:40 Follow up: Response: No adverse reaction; Marked relief of symptoms; IV Status: pf1 Completed infusion; IV Intake: 1000ml Medication: 22:00 VIS not applicable for this client. pf1 Intake: 23:15 IV: 100ml; Total: 100ml. pf1 23:40 IV: 1000ml; Total: 1100ml. pf1 Outcome: 02/18 00:27 Discharge ordered by . rt 00:38 Discharged to home ambulatory, with family. pf1 00:38 Condition: improved 00:38 Discharge instructions given to patient, Instructed on discharge instructions, follow up and referral plans. Demonstrated understanding of instructions, follow-up care. 00:38 Patient left the ED. pf1 Signatures: Dispatcher [employer] EDMarry Lopez, RN RN Arielle Yangj6 Clay Bertrand MD MD rt Arti Harry RN RN pf1
[2023-02-18 01:12] VITALS: BP 161/87; TEMP 97.4; O2SAT 100
--- NOTE | 2023-02-18 16:51 | RAD REPORT ---
EXAM DESCRIPTION: CT - Head Brain Wo Cont - 02/18/2023 6:43 am CLINICAL HISTORY: 52 years Female HEADACHE COMPARISON: None TECHNIQUE: Images were obtained in axial, sagittal, and coronal planes. This exam was performed according to our departmental dose-optimization program which includes use of Automated Exposure Control, adjustment of the mA and/or kV according to patient size and/or use of i terative reconstruction technique. FINDINGS: Ventricular system appears normal. No abnormal areas of increased attenuation seen. No extra-axial fluid collections noted. No evidence for skull fracture. Unremarkable paranasal sinuses. Symmetric aeration mastoid air cells bilaterally. IMPRESSION: No acute intracranial abnormality. No evidence for hemorrhage, mass lesion, or large acu te infarction. Electronically signed by: Mignon Buck MD 02/18/2023 12:22 AM CDT Due to temporary technical issues with the PACS/Fluency reporting system, reports are being signed by the in house radiologists without review as a courtesy to insure prompt reporting. The interpreting radiologist is fully responsible for the content of the report.
== END 2023-02-18 00:38 | disposition home or self-care (01) ==
LOC: ER 21:22
DX: R51.9 Headache, unspecified (principal)
CPT/HCPCS: 36415; 70450; 80053; 85025; 96365; 96375; 99284; J1200; J2765; J3475; J7030